=== PATIENT | female | born 1995 | race Caucasian/White ===

== ENCOUNTER 2022-08-18 08:46 | Emergency (ER) | payer OTHER, SELFPAY ==
[2022-08-18 09:11] VITALS: BP 111/75; PULSE 108; RESP 18; TEMP 37.4; O2SAT 98; BMI 42.0
--- NOTE | 2022-08-18 09:23 | ED_ITS ---
HPI - Nausea/Vomiting/Diarrhea General Chief complaint: Nausea/Vomiting/Diarrhea Stated complaint: vomiting, dehydrated Time Seen by Provider: 08/18/22 09:22 Source: patient Mode of arrival: ambulatory Limitations: no limitations History of Present Illness HPI Narrative: rhinorrhea for a few days, now with NVD. Patient with continual vomiting since last night. patient states no period in 5 months but she is on implanotono BERNARDO elicited complaint: nausea, vomiting and diarrhea Associated nausea: Yes Associated abdominal pain: Yes Severity: mild Related Data Previous Rx's Medication Instructions Recorded ondansetron 4 mg disintegrating 4 mg PO Q8H 4 days #12 tabs 08/18/22 tablet Allergies Allergy/AdvReac Type Severity Reaction Status Date / Time aripiprazole [From [employer]] Allergy Intermediate Seizure Verified 08/18/22 09:10 Review of Systems Review of Systems: Yes all other systems are reviewed and are negative Gastrointestinal: Gastrointestinal: Reports nausea and Reports vomiting Neurologic: Denies Sensory deficit (Neuro) [facility] Social History Social History Advance Directives: No Physical Exam Vital Signs: Vital Signs: Last Vital Signs Temp 100.3 F 08/18/22 10:32 Pulse 91 08/18/22 10:32 Resp 18 08/18/22 10:32 BP 105/58 L 08/18/22 10:32 Pulse Ox 99 08/18/22 10:32 O2 Del Method 08/18/22 09:11 BMI result Body Mass Index 42.0 Const: General: healthy appearing Nutritional Appearance: obese Orientation/consciousness: oriented to person and patient oriented x3 Limitations: no limitations HEENT: Head: Yes normal to inspection Ears: external ears normal General nose exam: Normal external nose present Mouth: Normal oral and palatal mucosa present and oropharynx normal Throat: Yes posterior oropharynx normal Eyes: General: appearance normal, both eyes and all related structures Neck: Other: supple Neck: Yes normal visual inspection Chest: Chest palpation & inspection: normal inspection of the chest Resp: Auscultation: clear to auscultation bilaterally Cardio: Jugular venous distension: no JVD Rate: regular rate Rhythm: regular rhythm Heart sounds: S1 normal heart sound present and S2 normal heart sound present GI: Inspection: Yes normal to inspection Palpation (GI): Soft to palpation, nontender and No hepatosplenomegaly present Auscultation: normal bowel sounds : General: Yes no CVA tenderness Back/Spine/Pelvis: Back: no CVA tenderness Skin: General skin exam: no rashes or lesions noted Neuro: General: oriented to person and patient oriented x3 Cranial nerves: Yes CN's II-XII intact bilaterally Motor exam (neuro): 5/5 motor strength pre sent throughout Sensory Exam: No Sensory deficit (Neuro) Extrem: General: Yes normal to inspection Psych: Appearance: grossly normal Course Reevaluation(s) Reevaluation #1: Patient with viral illness will give zofran and dc home Time: 10:56 Medications Administered Discontinued Medications Generic Name Dose Route Start Last Admin Trade Name Freq PRN Reason Stop Dose Admin Ondansetron HCl 4 mg 08/18/22 09:26 08/18/22 09:36 Ondansetron Odt 4 Mg Tab.Rapdis TRANSLINGU 08/18/22 09:27 4 mg ONCE ONE Administration Medical Decision Making Lab Data Labs: Lab Results 08/18/22 08/18/22 08/18/22 Range/Units 09:37 10:00 10:00 Urine Color Dark Yellow Urine Appearance Clear Urine pH 6.5 (5.0-9.0) Ur Specific [place] >= 1.030 H (1.005-1.025) Urine Protein Trace (Neg-Trace) mg/dL Urine Glucose (UA) Negative (Negative) mg/dL Urine Ketones Trace (Negative) mg/dL Urine Blood Negative (Negative) Urine Nitrite Negative (Negative) Ur Leukocyte Esterase Negative (Negative) Urine RBC 0-2 (0-2) /HPF Urine WBC 0-5 (0-5) /HPF Ur Squamous Epith Cells 3-5 (0-2) /HPF Urine Bacteria Trace (None Seen) Hyaline Casts 0-2 (0-2) /LPF Urine Test NEGATIVE (NEGATIVE) Influenza Type A (PCR) NEGATIVE (Negative) Influenza Type B (PCR) NEGATIVE (Negative) RSV RNA Qual (PCR) NEGATIVE (Negative) SARS-CoV-2 RNA (RT-PCR) NEGATIVE (Negative) Discharge Plan Discharge Clinical Impression: Viral illness, Nausea & vomiting Patient Disposition: Home, Self-Care Instructions: Acute Nausea and Vomiting (ED), Viral Syndrome (ED) Prescriptions: New ondansetron 4 mg tablet,disintegrating 4 mg PO Q8H 4 Days Qty: 12 0RF
[2022-08-18] MEDS: Ondansetron ODT 4 MG TAB.RAPDIS TRANSLINGU (09:36)
[2022-08-18 09:37] VITALS: BP 121/68; PULSE 93; RESP 16; O2SAT 97
[2022-08-18 10:14] LABS: Appearance Urine Clear; Color Urine Dark Yellow; Glucose Urine UA Negative (Negative); Leukocyte Esterase Urine Negative (Negative); Nitrite Urine Negative (Negative); PH 6.5 (5.0-9.0); Specific Gravity - Urine >= 1.030 (1.005-1.025); Urine Blood Negative (Negative); Urine Ketones Trace mg/dL (Negative); Urine Protein Trace mg/dL (Neg-Trace)
[2022-08-18 10:18] LABS: Influenza A PCR NEGATIVE (Negative); Influenza B PCR NEGATIVE (Negative); Resp Syncy Virus RNA Qual PCR NEGATIVE (Negative); SARS COV2 PCR INHOUSE NEGATIVE (Negative)
[2022-08-18 10:19] LABS: Bacteria Urine Trace (None Seen); Hyaline Casts Urine 0-2 /LPF (0-2); RBC Urine 0-2 /HPF (0-2); UPreg QC Valid YES; Urine Pregnancy NEGATIVE (NEGATIVE); WBC Urine 0-5 /HPF (0-5)
[2022-08-18 10:32] VITALS: BP 105/58; PULSE 91; RESP 18; TEMP 37.9; O2SAT 99
== END 2022-08-18 11:15 | disposition home or self-care (01) ==
PROVIDERS: Emergency Provider Emergency Medicine
DX: B34.9 Viral infection, unspecified (principal); R11.2 Nausea with vomiting, unspecified; Z20.822 Contact with and (suspected) exposure to COVID-19
CPT/HCPCS: 0241U; 81001; 81025; 99283

== ENCOUNTER 2023-05-22 14:12 | Outpatient (AMB) | payer OTHER, SELFPAY ==
--- NOTE | 2023-05-22 14:21 | A.OFFVIS_ITS ---
Intake Vital Signs 05/22/23 14:23 Height 5 ft 6 in Weight 294 lb BMI 47.4 BP 128/90 H Blood Pressure Location Rt brachial Position Sitting Pulse 113 H Pulse Source Auscultation Pulse Oximetry (%) 98 Oxygen Delivery Method Room Air Intake Visit Reasons: E-BOOKKEEPER RECEPTIONIST: Sleep Disturbances - Confirmed Intake Note: Patient presents for sleep disturbances. patient states I used to be on meds for nightmares but they were not as frequent so I stopped therm. I have trouble staying asleep have woken up crying and having nightmares and seeing things in my room. Allergies aripiprazole [From Abilify] Allergy (Intermediate, Verified 05/22/23 14:26) Seizure HPI HPI Comments History of Present Illness Details 28 y/o female patient presents for new i n-person visit for sleep consultation. Pt reports she is having difficulty breathing at night and loud snoring. She has non refreshing sleep with daytime sleepiness. She feels tired all day. Pt has hx of night terror, it started at her age 15, and still having nightmares. Pt also reports REM behavior, her sleep partner reported to her she had sexual activity during sleep However she states that she was not awake and can't remember anything in the morning. Sleep questionnaire: Have you ever been diagnosed with a sleep disorder? Night terrors. Have you ever had a sleep study in the past? No. Have you ever been treated for a sleep disorder? Yes, some medication, but can't remember. Do you take medications for a sleep disorder? No. Do you snore? Yes. Do you wake up gasping at night? Yes. Do you have episodes of apneas? No. If yes, are they witnessed? No. Do you have episodes of nocturnal chest pain or dyspnea? No. Do you have difficulty initiating sleep? No. Do you have difficulty maintaining sleep? Yes, 4-5 times at night. Do you wake up tired? Yes, and always tired. Do you have headaches upon awakening? No. Do you wake up with dry mouth or throat? Yes. Do you have GERD? No. Do you have nocturia? Yes. Do you have nocturnal leg cramps? Not really. Do you have symptoms of restless legs? Yes. Do you act out your dreams? Yes. Sleep hygiene questionnaire: What is your usual sleep routine? Usual bedtime is at 8-9 pm; Usual wake up time is at 7 am. Do you take naps? No. Is your sleep environment cool, dark, and quiet? Yes. Do you exercise? Yes. Do you take caffeine or other stimulants? Two cups of coffee throughout the day. Smoking 2-3 cabarets a day. Do you use electronics in bed? Yes. What is your work schedule? [employer], weekend. Hypersomnolence questionnaire: Do you have daytime tiredness or fatigue? Yes. Do you easily fall asleep when inactive? No. Have you ever had episodes of sudden weakness? No. Have you ever had episodes of sudden weakness associated with strong emotions? No. PFSH Surgical History (Updated 05/22/23 @ 14:27 by CONNIE Petersen) H/O eye surgery Social History (Updated 05/22/23 @ 14:28 by CONNIE Petersen) Alcohol intake: current Patient Tobacco Use Status: Current everyday Tobacco user Review of Systems Const All systems reviewed & are unremarkable except as noted in HPI and below ENT Reports Normal hearing present Neuro Reports Normal hearing present Physical Exam Vital Signs: Last Vital Signs Pulse 113 H 05/22/23 14:23 BP 128/90 H 05/22/23 14:23 Pulse Ox 98 05/22/23 14:23 Oxygen Delivery Method Room Air 05/22/23 14:23 BMI result Body Mass Index 47.4 Const General: cooperative and tired appearing Nutritional Appearance: obese Orientation/consciousness: patient oriented x3 HEENT Throat: Yes other (mallampati grade 4) Neck Neck: Yes full ROM and Yes supple Resp Effort & Inspection: normal respiratory effort and able to speak in complete sentences Neuro General: patient oriented x3 and gait normal Cranial nerves: Yes Bilaterally intact EOM present, Yes Normal facial strength present, Yes Midline tongue present, Yes Symmetric palate elevation present, Yes Normal hearing present, Yes Ability to bilaterally rotate head present and Yes Ability to bilaterally elevate shoulders present Cognition (Neuro): normal cognition Gait exam (Neuro): Normal gait present Motor exam (neuro): 5/5 motor strength present throughout and Pronator motor function not present Psych Appearance: grossly normal Mental Status: mental status grossly normal Speech and movement: Normal speech and movement present Affect: normal affect Assessment & Plan Assessment & Plan (1) Daytime sleepiness: Code(s): R40.0 - Somnolence (2) Snoring: Code(s): R06.83 - Snoring (3) Obesity, Class III, BMI 40-49.9 (morbid obesity): Code(s): E66.01 - Morbid (severe) obesity due to excess calories (4) Restless legs syndrome: Code(s): G25.81 - Restless legs syndrome (5) REM behavioral disorder: Code(s): G47.52 - REM sleep behavior disorder Plan Pt is advised to undergo in lab sleep study to assess for sleep apnea, REM behav ior disorder and PLMD. Will f/u with pt after study to discuss results and appropriate treatment options. Sleep hygiene education provided. Advised patient to reduce smoking in the evening. Pt to call with any worsening concerns or questions. Orders: Orders RT PSG in-lab sleep study 05/22/23 G47.52 - REM sleep behavior disorder, G25.81 - Restless legs syndrome, E66.01 - Morbid (severe) obesity due to excess calories, R06.83 - Snoring, R40.0 - Somnolence Coding Level of Care Code New Pt Level 4 (51867) Diagnoses Daytime sleepiness R40.0 Snoring R06.83 Obesity, Class III, BMI 40-49.9 (morbid obesity) E66.01 Restless legs syndrome G25.81 REM behavioral disorder G47.52
[2023-05-22 14:23] VITALS: BP 128/90; PULSE 113; O2SAT 98; BMI 47.4
== END 2023-05-22 15:23 | disposition home or self-care (01) ==
PROVIDERS: PCP Nurse Practitioner Family; Visit Provider Nurse Practitioner Family
DX: R40.0 Somnolence (principal); R06.83 Snoring; E66.01 Morbid (severe) obesity due to excess calories; G25.81 Restless legs syndrome; G47.52 REM sleep behavior disorder
CPT/HCPCS: 99204

== ENCOUNTER → 2023-05-22 14:12 | Outpatient (BNVA) | payer OTHER, SELFPAY | PROVIDERS: Visit Provider Nurse Practitioner Family ==

== ENCOUNTER → 2023-08-09 20:30 | Outpatient (REF) | payer OTHER, SELFPAY | LOC: HO.SL 20:30 | PROVIDERS: PCP Nurse Practitioner Family; Visit Provider Nurse Practitioner Family | DX: G47.52 REM sleep behavior disorder (principal); G25.81 Restless legs syndrome; R06.83 Snoring; R40.0 Somnolence; E66.01 Morbid (severe) obesity due to excess calories | CPT/HCPCS: 95810 ==

== ENCOUNTER → 2023-08-10 02:18 | Outpatient (BNV) | payer OTHER, SELFPAY | PROVIDERS: PCP Nurse Practitioner Family; Visit Provider Psychiatry & Neurology Neurology | DX: G47.33 Obstructive sleep apnea (adult) (pediatric) (principal); G47.61 Periodic limb movement disorder | CPT/HCPCS: 95810 ==

== ENCOUNTER 2023-09-19 13:52 | Outpatient (AMB) | payer OTHER, SELFPAY ==
--- NOTE | 2023-09-19 13:55 | A.OFFVIS_ITS ---
Intake Vital Signs 09/19/23 14:01 Height 5 ft 6 in Weight 309 lb 8 oz BMI 49.9 BP 120/90 H Blood Pressure Location Rt brachial Position Sitting Pulse 102 H Pulse Source Pulse Oximeter Pulse Oximetry (%) 98 Oxygen Delivery Method Room Air Intake Visit Reasons: 4 mnts f/u-Confirmed Intake Note: Patient presents for four month F/U. Allergies aripiprazole [From Abilify] Allergy (Intermediate, Verified 09/19/23 13:58) Seizure HPI HPI Comments History of Present Illness Details 28 y/o female patient presents for follo w up of sleep study. The PSG sleep study result was significant for severe degree of sleep apnea. The AHI was 60/hr and oxygen luna was 81%. There were 275 PLMS with PLMs index 46.4/hr. 96 PLMS arousals with a PLMS arousals index of 16.2/hr. CPAP titration study ordered to find the optimal CPAP pressure to treat the severe degree of sleep apnea. Pt reports it is scheduled on 10/09/23. PFSH Surgical History H/O eye surgery Social History Alcohol intake: current Patient Tobacco Use Status: Current everyday Tobacco user Review of Systems Const All systems reviewed & are unremarkable except as noted in HPI and below ENT Reports Normal hearing present Neuro Reports Normal hearing present Physical Exam Vital Signs: Last Vital Signs Pulse 102 H 09/19/23 14:01 BP 120/90 H 09/19/23 14:01 Pulse Ox 98 09/19/23 14:01 Oxygen Delivery Method Room Air 09/19/23 14:01 BMI result Body Mass Index 49.9 Const General: cooperative and tired appearing Nutritional Appearance: obese Orientation/consciousness: patient oriented x3 HEENT Throat: Yes other (mallampati grade 4) Neck Neck: Yes full ROM and Yes supple Resp Effort & Inspection: normal respiratory effort and able to speak in complete sentences Neuro General: patient oriented x3 and gait normal Cranial nerves: Yes Bilaterally intact EOM present, Yes Normal facial strength present, Yes Midline tongue present, Yes Symmetric palate elevation present, Yes Normal hearing present, Yes Ability to bilaterally rotate head present and Yes Ability to bilaterally elevate shoulders present Cognition (Neuro): normal cognition Gait exam (Neuro): Normal gait present Motor exam (neuro): 5/5 motor strength present throughout and Pronator motor function not present Psych Appearance: grossly normal Mental Status: mental status grossly normal Speech and movement: Normal speech and movement present Affect: normal affect Assessment & Plan Assessment & Plan (1) Obesity, Class III, BMI 40-49.9 (morbid obesity): Code(s): E66.01 - Morbid (severe) obesity due to excess calories (2) Restless legs syndrome: Code(s): G25.81 - Restless legs syndrome (3) Periodic limb movement disorder: Code(s): G47.61 - Periodic limb movement disorder (4) NIA (obstructive sleep apnea): Comment: Severe degree of sleep apnea. The AHI was 60/hr and oxygen luna was 81%. Code(s): G47.33 - Obstructive sleep apnea (adult) (pediatric) Plan Advised patient to undergo CPAP titration study to find optimal CPAP pressure. Sleep hygiene education provided. Advised patient to reduce smoking in the evening. Will check labs to assess RLS and PLMD. Pt to call with any worsening concerns or questions. Coding Level of Care Code Est Pt Level 3 (32450) Diagnoses Obesity, Class III, BMI 40-49.9 (morbid obesity) E66.01 Restless legs syndrome G25.81 Periodic limb movement disorder G47.61 NIA (obstructive sleep apnea) G47.33
[2023-09-19 14:01] VITALS: BP 120/90; PULSE 102; O2SAT 98; BMI 49.9
== END 2023-09-19 14:26 | disposition home or self-care (01) ==
PROVIDERS: Visit Provider Nurse Practitioner Family
DX: E66.01 Morbid (severe) obesity due to excess calories (principal); G25.81 Restless legs syndrome; G47.61 Periodic limb movement disorder; G47.33 Obstructive sleep apnea (adult) (pediatric)
CPT/HCPCS: 99213

== ENCOUNTER → 2023-09-19 13:52 | Outpatient (BNVA) | payer OTHER, SELFPAY | PROVIDERS: Visit Provider Nurse Practitioner Family | DX: G47.33 Obstructive sleep apnea (adult) (pediatric) (principal); G47.61 Periodic limb movement disorder; G25.81 Restless legs syndrome; E66.01 Morbid (severe) obesity due to excess calories; Z68.42 Body mass index [BMI] 45.0-49.9, adult | CPT/HCPCS: 99212 ==

== ENCOUNTER → 2023-10-09 20:30 | Outpatient (REF) | payer OTHER, SELFPAY | LOC: HO.SL 20:30 | PROVIDERS: Visit Provider Nurse Practitioner Family | DX: Z13.89 Encounter for screening for other disorder (principal) ==

== ENCOUNTER 2023-12-18 15:28 | Outpatient (AMB) | payer OTHER, SELFPAY ==
--- NOTE | 2023-12-18 15:40 | MHC.OFFVIS ---
Intake Vital Signs 12/18/23 15:42 Height 5 ft 6 in Weight 315 lb 4 oz BMI 50.9 BP 112/62 Blood Pressure Location Rt brachial Position Sitting Respiration 16 Pulse 108 H Pulse Source Pulse Oximeter Pulse Oximetry (%) 95 Oxygen Delivery Method Room Air Intake Visit Reasons: Follow up Intake Note: Pt presents for a 3 month follow up for NIA, to discuss titration study. Group Program Manager Required: No Allergies aripiprazole [From Abilify] Allergy (Intermediate, Verified 12/18/23 15:42) Seizure Medication List - Last Reconciled 12/18/23 by Kendra Servin MD No Known Home Meds HPI HPI Comments History of Present Illness Details 28 y/o female patient presents for follow up of sleep study. The PSG sleep study result was significant for severe degree of sleep apnea. The AHI was 60/hr and oxygen luna was 81%. There were 275 PLMS with PLMs index 46.4/hr. 96 PLMS arousals with a PLMS arousals index of 16.2/hr. she was started on CPAP at 7 - 100% for past 30 days 11 days over 4 hrs Average usage hrs 3 hrs AHI 7 she has trouble using because of her recent illness and insomnia PFSH Surgical History H/O eye surgery Social History Alcohol intake: current Patient Tobacco Use Status: Current everyday Tobacco user Review of Systems ENT Reports Normal hearing present Neuro Reports Normal hearing present Physical Exam Vital Signs: Last Vital Signs Pulse 108 H 12/18/23 15:42 Resp 16 12/18/23 15:42 BP 112/62 12/18/23 15:42 Pulse Ox 95 12/18/23 15:42 Oxygen Delivery Method Room Air 12/18/23 15:42 BMI result Body Mass Index 50.9 Const General: cooperative and tired appearing Nutritional Appearance: obese Orientation/consciousness: patient oriented x3 HEENT Throat: Yes other (mallampati grade 4) Neck Neck: Yes full ROM and Yes supple Resp Effort & Inspection: normal respiratory effort and able to speak in complete sentences Neuro General: patient oriented x3 and gait normal Cranial nerves: Yes Bilaterally intact EOM present, Yes Normal facial strength present, Yes Midline tongue present, Yes Symmetric palate elevation present, Yes Normal hearing present, Yes Ability to bilaterally rotate head present and Yes Ability to bilaterally elevate shoulders present Cognition (Neuro): normal cognition Gait exam (Neuro): Normal gait present Motor exam (neuro): 5/5 motor strength present throughout and Pronator motor function not present Psych Appearance: grossly normal Mental Status: mental status grossly normal Speech and movement: Normal speech and movement present Affect: normal affect Assessment & Plan Assessment & Plan (1) Obesity, Class III, BMI 40-49.9 (morbid obesity): Code(s): E66.01 - Morbid (severe) obesity due to excess calories (2) Restless legs syndrome: Code(s): G25.81 - Restless legs syndrome (3) Periodic limb movement disorder: Code(s): G47.61 - Periodic limb movement disorder (4) NIA (obstructive sleep apnea): Comment: Severe degree of sleep apnea. The AHI was 60/hr and oxygen luna was 81%. Code(s): G47.33 - Obstructive sleep apnea (adult) (pediatric) Plan Continue CPAP at 7 and compliance stressed Melatonin 5mg qhs Flonase for nasal congestion start gabapentin 100mg qhs Sleep hygiene education provided. Advised patient to reduce smoking in the evening. Medications: New fluticasone propionate 50 mcg/actuation (Flonase Allergy Relief) administer into each nostril 1 spray intranasal DAILY 16 grams 4RF melatonin 5 mg PO .qhs 30 caps 6RF gabapentin 100 mg PO BEDTIME 30 caps 6RF gabapentin 100 mg PO BEDTIME 30 caps 6RF Coding Level of Care Code Est Pt Level 4 (69285) Diagnoses Obesity, Class III, BMI 40-49.9 (morbid obesity) E66.01 Restless legs syndrome G25.81 Periodic limb movement disorder G47.61 NIA (obstructive sleep apnea) G47.33
[2023-12-18 15:42] VITALS: BP 112/62; PULSE 108; RESP 16; O2SAT 95; BMI 50.9
== END 2023-12-18 16:27 | disposition home or self-care (01) ==
PROVIDERS: Visit Provider Psychiatry & Neurology Neurology
DX: E66.01 Morbid (severe) obesity due to excess calories (principal); G25.81 Restless legs syndrome; G47.61 Periodic limb movement disorder; G47.33 Obstructive sleep apnea (adult) (pediatric)
CPT/HCPCS: 99214

== ENCOUNTER → 2023-12-18 15:28 | Outpatient (BNVA) | payer OTHER, SELFPAY | PROVIDERS: Visit Provider Psychiatry & Neurology Neurology | DX: G47.33 Obstructive sleep apnea (adult) (pediatric) (principal); G25.81 Restless legs syndrome; G47.61 Periodic limb movement disorder; E66.01 Morbid (severe) obesity due to excess calories; Z68.43 Body mass index [BMI] 50.0-59.9, adult | CPT/HCPCS: 99212 ==

== ENCOUNTER 2024-08-31 10:33 | Outpatient (AMB) | payer OTHER, SELFPAY ==
[2024-08-31 10:35] VITALS: BMI 51.6
--- NOTE | 2024-08-31 10:35 | MHC.OFFVIS ---
Vital Signs 08/31/24 10:35 Height 5 ft 6 in Weight 320 lb BMI 51.6 Intake Visit Reasons: Follow up Intake Note: Patient presents for follow up. patient here for new evaluation for CPAP Allergies aripiprazole [From Abilify] Allergy (Intermediate, Verified 08/31/24 10:39) Seizure HPI Comments Details: 29 y/o female patient presents for follow up.she stopped using CPAP - her mask broke and she had mulitple problems with the equipment and says her machine smells like mold and she returned.The home care ( [facility] did not return he rcalls for help with her mask and never received any new supplies and had to use a broken mask ) The PSG sleep study result was significant for severe degree of sleep apnea. The AHI was 60/hr and oxygen luna was 81%. There were 275 PLMS with PLMs index 46.4/hr. 96 PLMS arousals with a PLMS arousals index of 16.2/hr. she was started on CPAP at 7 - 62% for past 30 days 8 days over 4 hrs Average usage hrs 1.57 AHI 16 she wants to try a different home care company . she has trouble using because of her recent illness and insomnia PFSH Surgical History H/O eye surgery Social History Alcohol intake: current Patient Tobacco Use Status: Current everyday Tobacco user Review of Systems ENT Reports Normal hearing present Neuro Reports Normal hearing present Physical Exam Vital Signs: BMI result Body Mass Index 51.6 Const General: cooperative and tired appearing Nutritional Appearance: obese Orientation/consciousness: patient oriented x3 HEENT Throat: Yes other (mallampati grade 4) Neck Neck: Yes full ROM and Yes supple Resp Effort & Inspection: normal respiratory effort and able to speak in complete sentences Neuro General: patient oriented x3 and gait normal Cranial nerves: Yes Bilaterally intact EOM present, Yes Normal facial strength present, Yes Midline tongue present, Yes Symmetric palate elevation present, Yes Normal hearing present, Yes Ability to bilaterally rotate head present and Yes Ability to bilaterally elevate shoulders present Cognition (Neuro): normal cognition Gait exam (Neuro): Normal gait present Motor exam (neuro): 5/5 motor strength present throughout and Pronator motor function not present Psych Appearance: grossly normal Mental Status: mental status grossly normal Speech and movement: Normal speech and movement present Affect: normal affect Assessment & Plan Assessment & Plan (1) Obesity, Class III, BMI 40-49.9 (morbid obesity): Code(s): E66.01 - Morbid (severe) obesity due to excess calories Category: Medical (2) Restless legs syndrome: Code(s): G25.81 - Restless legs syndrome Category: Medical (3) Periodic limb movement disorder: Code(s): G47.61 - Periodic limb movement disorder Category: Medical (4) NIA (obstructive sleep apnea): Comment: Severe degree of sleep apnea. The AHI was 60/hr and oxygen luna was 81%. Code(s): G47.33 - Obstructive sleep apnea (adult) (pediatric) Category: Medical Plan Continue CPAP at 7 and compliance stressed- prescription will be sent to a new Homecare company avoid supine sleep Melatonin 5mg qhs Flonase for nasal congestion start ropinirole 1mg qhs for restless legs syndrome. Sleep hygiene education provided Medications: New ropinirole administer 1-3 hours before bedtime 1 mg PO BEDTIME 30 tabs 6RF Discontinued gabapentin Discontinued Reason: Patient no longer taking 100 mg PO BEDTIME 30 caps 6RF Coding Level of Care Code Est Pt Level 4 (77931) Complex EM visit Add On G2211 Diagnoses Obesity, Class III, BMI 40-49.9 (morbid obesity) E66.01 Restless legs syndrome G25.81 Periodic limb movement disorder G47.61 NIA (obstructive sleep apnea) G47.33
== END 2024-08-31 11:02 | disposition home or self-care (01) ==
PROVIDERS: Visit Provider Psychiatry & Neurology Neurology
DX: E66.01 Morbid (severe) obesity due to excess calories (principal); G25.81 Restless legs syndrome; G47.61 Periodic limb movement disorder; G47.33 Obstructive sleep apnea (adult) (pediatric)
CPT/HCPCS: 99214; G2211

== ENCOUNTER → 2024-08-31 10:33 | Outpatient (BNVA) | payer OTHER, SELFPAY | PROVIDERS: Visit Provider Psychiatry & Neurology Neurology | DX: E66.01 Morbid (severe) obesity due to excess calories (principal); G25.81 Restless legs syndrome; G47.61 Periodic limb movement disorder; G47.33 Obstructive sleep apnea (adult) (pediatric); Z99.89 Dependence on other enabling machines and devices | CPT/HCPCS: 99212 ==

== ENCOUNTER 2024-10-07 02:03 | Emergency (ER) | payer OTHER, SELFPAY ==
--- NOTE | ~2024-10-07 | XR_ITS ---
CLINICAL HISTORY: sob 1 view chest x-ray Comparison: None Findings: No consolidation or effusion. Normal size heart. No acute fracture. IMPRESSION: 1. No acute findings. This document has been electronically signed by: Ulysses Oates MD on 10/07/2024 02:40:55
[2024-10-07 02:10] VITALS: BP 111/42; PULSE 93; RESP 20; TEMP 36.8; O2SAT 98; BMI 51.6
[2024-10-07 02:28] LABS: IDNOW Serial# 58CA691E; Strep A Nucleic Acid Negative (Negative)
[2024-10-07 02:58] LABS: Influenza A PCR POSITIVE (Negative); Influenza B PCR NEGATIVE (Negative); Resp Syncy Virus RNA Qual PCR NEGATIVE (Negative); SARS COV2 PCR INHOUSE NEGATIVE (Negative)
--- OUTSIDE RECORDS SUMMARY | 2024-10-07 04:20 | XMS_ITS | Encounter Summary ---
Author Organization [facility] Address [address] [place] [address] Care Team Providers Care Well Logging Captain Mud Analysis Name Role Phone Lore Jeffries Primary Care Provider [phone] Encounter Details Date Type Department Care Team (Latest Contact Info) Description 10/06/2024 10:40 AM EST Telemedicine Visit [facility] [address] [place] [phone] Child, BRUCE Mckoy [address] [place], [place] [phone] Acute cough (Primary Dx); Sore throat Social History Tobacco Use Types Packs/Day Years Used Date Smoking Tobacco: Some Days Cigarettes Smokeless Tobacco: Never Comments:Occasionally smokes cigarettes Alcohol Use Standard Drinks/Week Comments Not Currently 0 (1 standard drink = 0.6 oz pur e alcohol) Social Connections Answer Date Recorded Connectedness 0 10/04/2022 Financial Resource Strain Answer Date R ecorded Financial Resource Strain 0 2022 Stress Answer Date Recorded Stress 0 10/04/2022 Physical Activity Answer Date Recorded Physical Activity 0 04/26/2019 Food Insecurity Answer Date Recorded Food 0 10/04/2022 Transportation Needs Answer Date Record ed Transportation 0 10/04/2022 Housing Stability Answer Date Recorded Housing 0 10/04/2022 Safety and Environment Answer Date Servando rded Safety 1 02/04/2024 Utilities Answer Date Recorded Utilities 0 10/04/2022 Employment Answer Date Recorded Stress 0 05/30/2022 Comments No Sex and Gender Information Value Date Recorded Sex Assigned at Female 07/08/2017 10:57 AM PST Legal Sex Female 12:36 PM PDT Gender Identity Female 07/08/2017 10:57 AM PST Sexual Orientation Straight 07/08/2017 10 :57 AM PST documented as of this encounter Progress Notes * Ean Radford PA-C - 10/06/2024 10:50 AM EST Subjective: CC: cough HPI: Vaishnavi Garza is a 29 year old female patient who calls the office for a Telehealth encounter Patient calls the office due to symptoms of sore throat, cough, runny nose, for the past 3 days. Reports diarrhea over the past 3 days. Developed a fever yesterday, which has now resolved. Patient can tolerate food and liquid PO intake. She tried Tylenol with some relief. ROS: Denies sinus pain, chills, lightheadedness, sneezing, itchy eyes, eye pain, ear pain, chest pain, shortness of breath, abdominal pain Lab Results Component Value Date HGBA1C 5.9 (H) 04/24/2024 HGBA1C 5.2 12/04/2022 Allergies Allergen Reactions Aripiprazole Patient Active Problem List Diagnosis Anxiety and depression Posttraumatic stress disorder Attention deficit hyperactivity disorder (ADHD) Class 3 severe obesity due to excess calories without serious comorbidity with body mass index (BMI) of 45.0 to 49.9 in adult ([facility]) Nexplanon in place Binge eating disorder Current Outpatient Medications: benzonatate (TESSALON) 200 mg capsule, Take 1 Capsule by mouth 3 (three) times daily as needed for cough, Disp: 30 Capsule, Rfl: 0 ibuprofen 800 mg tablet, Take 1 Tablet by mouth 3 (three) times daily as needed for fever, headaches or pain, Disp: 90 Tablet, Rfl: 0 rOPINIRole (REQUIP) 1 mg tablet, Take 1 mg by mouth nightly at bedtime, Disp: , Rfl: cetirizine (ZYRTEC) 10 mg tablet, Take 1 Tablet by mouth once daily, Disp: 90 Tablet, Rfl: 1 fluticasone (FLONASE) 50 mcg/actuation nasal spray, Place 1 [place] in both nostrils once daily, Disp: 32 mL, Rfl: 1 liraglutide (VICTOZA) 0.6 mg/0.1 mL (18 mg/3 mL), INJECT 0.6MG INTO THE SKIN DAILY, Disp: 3 mL, Rfl: 1 pen needle, diabetic 32 gauge x 5/16 ndle, daily. Use to inject victoza once daily, Disp: 100 Each, Rfl: 2 clindamycin-benzoyl peroxide (BENZACLIN) 1-5 % gel, Apply topically 2 (two) times daily, Disp: 50 g, Rfl: 1 nystatin (MYCOSTATIN) 100,000 unit/gram cream, Apply topically 2 (two) times daily, Disp: 15 g, Rfl: 0 semaglutide, weight loss, 0.25 mg/0.5 mL pnij, Inject 0.25 mg into the skin every 7 (seven) days Week 1 through week 4 : 0.25 mg once weekly. Week 5 through week 8: 0.5 mg once weekly. Week 9 throughweek 12: 1 mg once weekly. Week 13 through week 16: 1.7 mg once weekly. Week 17 and thereafter (maintenance dosage): 2.4 mg once weekly, Disp: 0.5 mL, Rfl: 5 loratadine (CLARITIN) 10 mg tablet, TAKE 1 TABLET BY MOUTH ONCE DAILY NEEDED FOR ALLERGIES, Disp: 90 Tablet, Rfl: 0 albuterol HFA 90 mcg/actuation inhaler, Inhale 1-2 Puffs into the lungs every 4 (four) hours as needed for wheezing or shortness of breath, Disp: 18 g, Rfl: 1 Review of Systems Remainder ROS: See HPI, systems reviewed and are otherwise negative or noncontributory. Assessment and Plan: Vaishnavi Garza is a 29 year old female patient who was seen today as a walk-in at urgent care for evaluation of URI. R05.1 Acute cough (primary encounter diagnosis) Plan : IBUPROFEN 800 MG TABLET - Take 1 Tablet by mouth 3 (three) times daily as needed for fever, headaches or pain BENZONATATE 200 MG CAPSULE - Take 1 Capsule by mouth 3 (three) times daily as needed for cough J02.9 Sore throat Plan : IBUPROFEN 800 MG TABLET - Take 1 Tablet by mouth 3 (three) times daily as needed for fever, headaches or pain BENZONATATE 200 MG CAPSULE - Take 1 Capsule by mouth 3 (three) times daily as needed for cough The following visit was conducted via Audio only. I educated the patient/guardian on the terms of telehealth and the patient verbally consented to this telemedicine visit. The patient was identified using their Name, and [facility] ID. I identified myself as Ean Radford PA-C from [facility]. It was conducted in a private space to protect HIPPA sensitive information. Precautions were taken to provide confidentiality and security and patient was made aware of privacy considerations. The patients location was obtained and is Pts home The patient/guardian was notified that the services were being provided from [place], [place]([facility]). The patient/guardian was notifiedhow they can see a clinician in-person in the event of an emergency or if otherwise needed. Total duration of call = 8 minutes Net Fisher used during visit? No documented in this encounter Plan of Treatment Upcoming Encounters Date Type Department Care Team (Late st Contact Info) Description 10/20/2024 1:40 PM EST Office Visit [facility] [address] [place] [address] Lore Jeffries PA [facility] [place] [address] documented as of this encounter Visit Diagnoses Diagnosis Acute cough- Primary Sore throat Acute pharyngitis documented in this encounter Additional Health Concerns Assessment Noted Time PHQ-9 Depression Total Score: 5 02/04/20 24 3:52 PM PDT documented as of this encounter Care Teams Well Logging Captain Mud Analysis Relationship Specialty Start Date End Date Lore Jeffries PA [facility] [place] [address] PCP - General Primary Care 09/10/23 documented as of this encounter
--- OUTSIDE RECORDS SUMMARY | 2024-10-07 04:20 | XMS_ITS | Clinical Summary ---
Author Organization [facility] Address [address] [place] [address] Care Team Providers Care Apple Turner Name Role Phone Lore Jeffries Primary Care Provider [phone] Source Comments PLEASE NOTE, if this patient is a minor, it may be UNLAWFUL to discuss sensitive information that is contained in these records (such as FAMILY PLANNING, MENTAL HEALTH or SUBSTANCE ABUSE) with the minor patient's parent or other person without the patient's specific authorization.[facility] Allergies Active Allergy Reactions Criticality Noted Date Comments Aripiprazole 07/04/2016 Medications albuterol HFA 90 mcg/actuation inhaler Inhale 1-2 Puffs into the lungs every 4 (four) hours as needed for wheezing or shortness of breath 18 g 1 3 Active loratadine (CLARITIN) 10 mg tabletIndication s:Nasal congestion TAKE 1 TABLET BY MOUTH ONCE DAILY NEEDED FOR ALLERGIES 90 Tablet 3 Active nystatin (MYCOSTATIN) 100,000 unit/gram creamIndications :Fungal infection of skin Apply topically 2 (two) times daily 15 g 4 Active semaglutide, weight loss, 0.25 mg/0.5 mL pnijIndications: Class 3 severe obesity due to excess calories without serious comorbidity with body mass index (BMI) of 50.0 to 59.9 in adult ([facility]) Inject 0.25 mg into the skin every 7 (seven) days Week 1 through week 4 : 0.25 mg once weekly. Week 5 through week 8: 0.5 mg once weekly. Week 9 through week 12: 1 mg once weekly. Week 13 through week 16: 1.7 mg once weekly. Week 17 and thereafter (maintenance dosage): 2.4 mg once weekly 0.5 mL 5 4 Active clindamycin-nyasia oyl peroxide (BENZACLIN) 1-5 % gelIndications:C yst of skin Apply topically 2 (two) times daily 50 g 1 4 Active pen needle, diabetic 32 gauge x 5/16 ndle daily. Use to inject victoza once daily 100 Each 2 4 Active liraglutide (VICTOZA) 0.6 mg/0.1 mL (18 mg/3 mL)Indications:C lass 3 severe obesity due to excess calories without serious comorbidity with body mass index (BMI) of 45.0 to 49.9 in adult ([facility]),Binge eating disorder INJECT 0.6MG INTO THE SKIN DAILY 3 mL 1 4 Active fluticasone (FLONASE) 50 mcg/actuation nasal sprayIndications :Post-nasal drip Place 1 [place] in both nostrils once daily 32 mL 1 4 Active cetirizine (ZYRTEC) 10 mg tabletIndication s:Post-nasal drip Take 1 Tablet by mouth once daily 90 Tablet 1 4 Active rOPINIRole (REQUIP) 1 mg tablet Take 1 mg by mouth nightly at bedtime 4 Active ibuprofen 800 mg tabletIndication s:Sore throat,Acute cough Take 1 Tablet by mouth 3 (three) times daily as needed for fever, headaches or pain 90 Tablet 5 Active benzonatate (TESSALON) 200 mg capsuleIndicatio ns:Sore throat,Acute cough Take 1 Capsule by mouth 3 (three) times daily as needed for cough 30 Capsule 5 Active Active Problems Problem Noted Date Diagnosed Date Binge eating disorder 04/24/[address] 05/02/2023 Class 3 severe obesity due t o excess calories without serious comorbidity with body mass index (BMI) of 45.0 to 49.9 in adult ([facility]) 01/30/2023 Attention deficit hyperactivity disorder (ADHD) 05/30/2022 Anxiety and depression 04/14/2017 Posttraumatic stress disorder 04/14/2017 Resolved Problems Problem Noted Date Diagnosed Date Resolved Date 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 Encounters Date Type Department Care Team Description 10/06/2024 10:40 AM EST Telemedicine Visit [facility] [address] [place] [phone] Child, BRUCE Mckoy Acute cough (Primary Dx); Sore throat 07/15/2024 4:20 PM EST Office Visit [facility] [place] [address] [place] [address] Paul Thompson FNP Seasonal allergies (Primary Dx); Post-nasal drip; Cough, unspecified type; NIA (obstructive sleep apnea); Paresthesias; Class 3 severe obesity with body mass index (BMI) of 50.0 to 59.9 in adult, unspecified obesity type, unspecified whether serious comorbidity present ([facility]) 07/15/2024 Travel from Last 3 Months Immunizations Name Administration Dates Next Due DTAP 11/30/2019 Flu, Preservative Free 06/13/2023,10/04/2022 HPV 9 (Gardasil) 06/13/2023,02/11/2023, 3 Hep B,adult,adjuvanted (HEPLISAV) 06/13/2023,08/2023 MMR (MMR II/Priorix) 02/11/2020 PNEUMOCOCCAL CONJUGATE PCV 2 0 (Prevnar) 02/04/2024,06/17/2023(Deferred: Out of Stock) TDAP 11/30/2019 Family History * Patient is adopted Medical History Relation Name Comments Breast cancer Maternal Grandmother Relation Name Status Comments Maternal Grandmother Social History Tobacco Use Types Packs/Day Years [...] Orientation Straight 07/08/2017 10 :57 AM PST Last Filed Vital Signs Vital Sign Reading Time Taken Comments Blood Pressure 120/74 07/15/2024 4:39 PM EST Pulse 108 07/15/2024 4:39 PM EST Temperature 36.7 ??C (98 ??F) 07/15/2024 4:39 PM EST Respiratory Rate 18 05/13/2024 3:23 PM EDT Oxygen Saturation 98% 07/15/2024 4:39 PM EST Inhaled Oxygen Concentration - - Weight 141.5 kg (312 lb) 07/15/2024 4:39 PM EST Height 167.6 cm (5' 6 ) 07/15/2024 4:39 PM EST Body Mass Index 50.36 07/15/2024 4:39 PM EST Plan of Treatment Upcoming Encounters Date Type Department Care Team (Late st Contact Info) Description 10/20/2024 1:40 PM EST Office Visit [facility] [place] [address] [place] [phone] Lore Jeffries PA [address] [place] [phone] Health Maintenance Due Date Last Done Comments HPV Screening 1997 Pap + HPV 1997 Medicare Annual Wellness Visit 2015 Cervical Cancer Screening 2018 Pap Smear 2018 Depression Monitoring 07/25/2024 04/24/2024 , 02/04/2024, 06/13/2023, Additional history exists Alcohol and Drug Screen 09/02/2024 04/24/20 24, 02/04/2024, 03/13/2023, Additional history exists [id number] ( season) 2024 Postponed from 05/03/2024 (Patient postponement) Relationship Safety Screening/Counseling 02/03/2025 02/04/2024, 10/04/2022, 05/30/2022 Tobacco Cessation Counseling (#1) 02/03/2025 02/04/2024, 06/17/2023, 12/04/2022 Imm-Influenza (#1) 2025 06/13/2023, 10/04/2022 Postponed from 05/03/2024 (Follow up visit) Diabetes Screening 04/24/2025 04/24/2024, 0 04/24/2024, 12/04/2022, Additional history exists Hypertension Screening (#1) 07/15/2025 Lipid Screening 12/04/2025 12/04/2022 Imm-DTaP/Tdap/Td (3 - Td or Tdap) 11/29/2029 11/30/2019, 11/30/2019 HIV Screening Completed 01/09/2018 Hepatitis C Screening Completed 12/04/2022 Imm-Hepatitis B Completed 06/13/2023, 02/11/2023 Imm-Pneumococcal Completed 02/04/2024 Cervical Ablation/Cold-Knife Conization Discontinued Cervical Cryotherapy Discontinued Colposcopy Discontinued Endometrial Biopsy Discontinued Excision/Leep Discontinued HPV Genotyping Discontinued Vaginal Pap Discontinued Vulvoscopy Discontinued Procedures Procedure Name Priority Date/Time Associated Diagnosis Comments COMPREHENSIVE METABOLIC PANEL Routine 04/24/2024 3:59 PM EDT Class 3 severe obesity due to excess calories without serious comorbidity with body mass index (BMI) of 50.0 to 59.9 in adult ([facility]) HEPATITIS C AB W/RFLX HCV RNA, QT, RT PCR Routine 12/04/2022 10:23 AM EDT Screening for viral disease LIPID PANEL Routine 12/04/2022 10:23 AM EDT Encounter for wellness examination in adult BMI 40.0-44.9, adult ([facility]) Lipid screening Abnormal finding of blood chemistry, unspecified ANTIBODY HIV-1&HIV-2 SINGLE RESULT Routine 01/09/2018 10:30 AM EDT STD (female) from Last 3 Months or Most Recently Relevant to Health Maintenance Results * (ABNORMAL) COMPREHENSIVE METABOLIC PANEL (04/24/2024 3:59 PM EDT) GLUCOSE 121(H) 65 - 99 mg/dL [facility] Comment: ?Fasting reference interval For someone without known diabetes, a glucose value between 100 and 125 mg/dL is consistent with prediabetes and should be confirmed with a follow-up test. UREA NITROGEN (BUN) 13 7 - 25 mg/dL [facility] CREATININE (blood) 0.75 0.50 - 0.96 mg/dL [facility] EGFR 113 > OR = 60 mL/min/1. 73m2 [employer] [facility] BUN/CREATININE RATIO SEE NOTE: [facility] Comment: ?? Not Reported: BUN and Creatinine are within ?? reference range. ? SODIUM 139 135 - 146 mmol/L [facility] POTASSIUM 3.9 3.5 - 5.3 mmol/L [facility] CHLORIDE 107 98 - 110 mmol/L [facility] CARBON DIOXIDE 24 20 - 32 mmol/L [facility] CALCIUM 8.9 8.6 - 10.2 mg/dL [facility] PROTEIN, TOTAL 6.4 6.1 - 8.1 g/dL [facility] ALBUMIN 4.2 3.6 - 5.1 g/dL [facility] GLOBULIN 2.2 1.9 - 3.7 g/dL (calc) [facility] ALBUMIN/GLOBULI N RATIO 1.9 1.0 - 2.5 (calc) [facility] BILIRUBIN, TOTAL 0.2 0.2 - 1.2 mg/dL [facility] ALKALINE PHOSPHATASE 50 31 - 125 U/L [employer] AST 23 10 - 30 U/L [employer] ALT 29 6 - 29 U/L [employer] Blood Blood / Unknown 04/24/2024 3 :59 PM EDT 04/24/2024 3:59 PM EDT us Lore DURAN LAB - BLOOD DRAW Edited Result - Final Performing Organization Address [facility]/ZIP Co de Phone Number [facility] [address] [address], [facility] [address] [address] * HEPATITIS C AB W/RFLX HCV RNA, QT, RT PCR (12/04/2022 10:23 AM EDT) [facility] HEPATITIS C ANTIBODY NON-REACT DEBBI NON-REACT DEBBI [facility] SIGNAL TO CUT-OFF 0.03 <1.00 [facility] Comment: HCV antibody was non-reactive. There is no laboratory evidence of HCV infection. In most cases, no further action is required. However, if recent HCV exposure is suspected, a test for HCV RNA (test code 92801) is suggested. For additional information please refer to http://education.RadMit/faq/PVI15d3 (This link is being provided for informational/ educational purposes only.) Blood Blood / Unknown 12/04/2022 1 0:23 AM EDT 12/04/2022 10:24 AM EDT Dalia KERNP-C LAB - BLOOD DRAW Edited Resu lt - Final Performing Organization Address City/[facility]/ZIP Co de Phone Number [facility] [address] [address], [facility] [address] [address] * (ABNORMAL) LIPID PANEL (12/04/2022 10:23 AM EDT) [facility] CHOLESTEROL, TOTAL 152 <200 mg/dL [facility] HDL CHOLESTEROL 42(L) > OR = 50 mg/dL [facility] TRIGLYCERIDES 130 <150 mg/dL [facility] LDL-CHOLESTEROL 87 99 mg/dL (calc) [facility] Comment: Reference range: <100 Desirable range <100 mg/dL for primary prevention; ?? <70 mg/dL for patients with CHD or diabetic patients with > or = 2 CHD risk factors. LDL-C is now calculated using the Sam-Pfeiffer calculation, which is a validated novel method providing better accuracy than the Friedewald equation in the estimation of LDL-C. Sam SS et al. ASRA. 2013;310(19): 3689-2883 (http://education.TSB/faq/VWE924) CHOL/HDLC RATIO 3.6 <5.0 (calc) [facility] NON-HDL CHOLESTEROL 110 <130 mg/dL (calc) [facility] Comment: For patients with diabetes plus 1 major ASCVD risk factor, treating to a non-HDL-C goal of <100 mg/dL (LDL-C of <70 mg/dL) is considered a therapeutic option. Blood Blood / Unknown 12/04/2022 1 0:23 AM EDT 12/04/2022 10:24 AM EDT us Dalia Ramos GEOLOGICAL SCOUT-C LAB - BLOOD DRAW Final Resul t Performing Organization Address City/[facility] Co de Phone Number [facility] [address] [address], [facility] [address] [address] * HIV-1 & HIV-2 ANTIBODIES (01/09/2018 10:30 AM EDT) [facility] HIV 1 AND 2 ANTIBODY SCREEN NEGATIVE NEGATIVE [facility] Comment: This assay is a 4th generation assay allowing for earlier detection of HIV infection by detecting the presence of the HIV-1 p24 antigen as well as the traditional antibodies to HIV type 1 (including group O) and type 2. ??Use of a 4th generation assay is the current CDC recommendation for HIV screening. Blood specimen (specimen) Blood / Unknown 01/09/2018 10:30 AM EDT 01/09/2018 10:35 AM EDT Narrative [facility] - 01/09/2018 1:08 PM EDT [employer] [address] [place] [address] PT ID [id number] ORD# [id number] Aria Brown NP LAB - BLOOD DRAW Final Result Performing Organization Address [facility] Co de Phone Number [address] [place] [address], from Last 3 Months or Most Recently Relevant to Health Maintenance Insurance [facility] Member Subscriber Plan / Payer (Ef fective 2021-Present) Name:Vaishnavi Garza Relation to Subscriber:Self Name:Vaishnavi Garza Payer ID:[id number] Group ID:Not on file Type:This Week In Address: [address] [place] [address] [facility] Member Subscriber Plan / Payer (Ef fective 2018-Present) Name:Vaishnavi Garza Relation to Subscriber:Self Name:Vaishnavi Garza Payer ID:[id number] Group ID:Not on file Type:This Week In Address: [address] [place] [address] Care Teams Apple Turner Relationship Specialty Start Date End Date Lore Jeffries PA [address] [place] [address] PCP - General Primary Care 09/10/23
--- OUTSIDE RECORDS SUMMARY | 2024-10-07 04:20 | XMS_ITS | Encounter Summary ---
Author Organization [facility] Address [address] [place] [address] Care Team Providers Care Lime Kiln And Recausticizing Operator Name Role Phone Lore Jeffries Primary Care Provider [phone] Encounter Details Date Type Department Care Team ([facility] st Contact Info) Description 05/14/[address] [phone] Lore Jeffries PA [address] [place] [address] Social History Tobacco Use Types Packs/Day Years [...] Orientation Straight 07/08/2017 10 :57 AM PST COVID-19 Exposure Response Date Recorded In the last 10 days, have lilo mccarthy been in contact with someone who was confirmed or suspected to have Coronavirus/COVID-19? No / Unsure 05/13/2024 3:13 PM EDT documented as of this encounter Plan of Treatment Upcoming Encounters Date Type Department Care Team (Late st Contact Info) Description 10/20/2024 1:40 PM EST Office Visit [address] [phone] Lore Jeffries PA [address] [place] [address] documented as of this encounter Visit Diagnoses Not on filedocumented in this encounter Additional Health Concerns Assessment Noted Time PHQ-9 Depression Total Score: 5 02/04/20 24 3:52 PM PDT documented as of this encounter Care Teams Lime Kiln And Recausticizing Operator Relationship Specialty Start Date End Date Lore Jeffries PA [address] [place] [address] PCP - General Primary Care 09/10/23 documented as of this encounter
--- NOTE | 2024-10-07 05:02 | ED_ITS ---
HPI - URI/Sore Throat General Chief Complaint: Upper Respiratory Symptoms Stated Complaint: flu like Time Seen by Provider: 10/07/24 04:39 Source: patient Mode of arrival: ambulatory Limitations: no limitations History of Present Illness ED Provider: Dr. Yola Castellon HPI Narrative: Patient comes to the emergency room complaining of 1 week of cough, body aches, intermittent diarrhea. Patient states that for the last 2 days, for the cough and the fever got worse. Patient states that the worst symptoms for her are the stuffy nose and the sore throat. Patient denies any chest pain or shortness of breath Related Data Previous Rx's ?Medication ?Instructions ?Recorded fluticasone propionate 50 1 spray intranasal DAILY #16 grams 12/18/23 mcg/actuation nasal spray,suspension (Flonase Allergy Relief) melatonin 5 mg capsule 5 mg PO .qhs #30 caps 12/18/23 ropinirole 1 mg tablet 1 mg PO BEDTIME #30 tabs 08/31/24 benzonatate 100 mg capsule 100 mg PO TID PRN cough #12 caps 10/07/24 fluticasone propionate 50 2 spray intranasal DAILY #16 grams 10/07/24 mcg/actuation nasal spray,suspension (Children's Flonase Allergy Relief) ibuprofen 600 mg tablet 600 mg PO TID PRN fever or pain 10/07/24 #20 tabs Allergies Allergy/AdvReac Type Severity Reaction Status Date / Time aripiprazole [From Abilify] Allergy Intermediate Seizure Verified 08/31/24 10:39 cat dander [cats] AdvReac Hives Verified 10/07/24 02:12 Review of Systems Review of Systems: Constitutional : No Weight loss, complaining of fever, chills, fatigue and generalized malaise ENT/Mouth : No Hearing loss, No Ear Pain, complaining of Nasal Congestion, No Sinus Pain, No Hoarseness, complaining of sore throat, No Rhinorrhea, No Swallowing Difficulty Eyes: No Eye Pain, No Swelling, No Redness, No Foreign Body, No Discharge, No Vision Changes Cardiovascular : No Chest Pain, No SOB, No Dyspnea on Exertion, No Orthopnea, No Edema, No Palpitations Respiratory : No Cough, No Sputum, No Wheezing, No Smoke Exposure, No Dyspnea Gastrointestinal : No Nausea, No Vomiting, No Diarrhea, No Constipation, No abdominal Pain, No Hematochezia, No Melena Genitourinary : no irregular bleeding, No Dysuria, No Urinary Frequency, No Hematuria, No Urinary Incontinence, No Urgency, No Flank Pain, No Urinary Flow Changes, No Hesitancy Musculoskeletal : No joint pain, No Myalgias, No Joint Swelling Skin : No Skin Lesions, No rash Neuro : No Weakness, No Numbness, No Paresthesias, No Loss of Consciousness, No Dizziness, No Headache Psych : No Anxiety/Panic, No Depression, No SI/HI/AH/VH, No Social Issues, Heme/Lymph: No Bruising, No Bleeding,No Lymphadenopathy Endocrine : No Polyuria, No Polydipsia, No Temperature Intolerance [facility] Past Medical History Surgical History H/O eye surgery Social History Social History Alcohol intake: current Patient Tobacco Use Status: Current everyday Tobacco user Advance Directives: No Advance Directives Information Provided: Yes Do you have a plan to hurt others: No Plan Physical Exam Vital Signs: Vital Signs: Last Vital Signs Temp 98.3 F 10/07/24 02:10 Pulse 93 10/07/24 02:10 Resp 20 10/07/24 02:10 BP 111/42 L 10/07/24 02:10 Pulse Ox 98 10/07/24 02:10 O2 Del Method Room Air 10/07/24 02:10 BMI result Body Mass Index 51.6 Const: Other: Appearance: Alert. Oriented X3. No acute distress. Eyes: Pupils equal, round and reactive to light. ENT: Erythematous oropharynx , no visualized abscesses Neck: Normal inspection. Neck supple. No lymph nodes noted. No crepitus CVS: Normal heart rate and rhythm. Pulses normal. Normal S1 and S2 Respiratory: No respiratory distress. Breath sounds normal. No Wheezing. No rales Abdomen: Soft and nontender. No rigidity. No distention. Skin: Skin warm and dry. Normal skin color. Normal skin turgor. Extremities: No lower extremity edema. No Lacerations. No Rash Neuro: Oriented X 3. No motor deficit. No sensory deficit. Moving all extremities. No slurred speech. CN 2 through 12 grossly intact Psych: calm, cooperative, normal affect Medical Decision Making Medical Decision Making MDM Narrative: My interpretation of labs: Patient tested positive for influenza A, strep negative Chest x-ray negative for infiltrates Patient was given p.o. viscous lidocaine and Decadron, and 1 dose of Tessalon Perles Lab Data [facility] Lab Attestation statement: I reviewed the patient's lab results. Labs: Lab Results 10/07/24 Range/Units 02:22 Influenza Type A (PCR) POSITIVE A (Negative) Influenza Type B (PCR) NEGATIVE (Negative) RSV RNA Qual (PCR) NEGATIVE (Negative) SARS-CoV-2 RNA (RT-PCR) NEGATIVE (Negative) S. pyogenes GrpA OTILIA Negative (Negative) Independent Interpretation I performed an independent interpretation of an: Plain X-Ray Radiology Impression Discussion of test interpretation with radiology: I have reviewed the radiologist's reading. Radiologist Impression: No consolidation or effusion. Normal size heart. No acute fracture. IMPRESSION: 1. No acute findings. Discharge Plan Discharge Clinical Impression: Influenza A Patient Disposition: Home, Self-Care Instructions: Influenza (ED) Additional Instructions: Please follow-up with your primary care physician tomorrow. If you have any worsening or new symptoms, please return to the emergency room or call 911 Prescriptions: New ibuprofen 600 mg tablet 600 mg PO TID PRN (Reason: fever or pain) Qty: 20 0RF fluticasone propionate [Children's Flonase Allergy Rlf] 50 mcg/actuation spray,suspension 2 spray intranasal DAILY Qty: 16 0RF Rx Instructions: administer into each nostril benzonatate 100 mg capsule 100 mg PO TID PRN (Reason: cough) Qty: 12 0RF No Action fluticasone propionate [Flonase Allergy Relief] 50 mcg/actuation spray,suspen jorje 1 spray intranasal DAILY Qty: 16 4RF Rx Instructions: administer into each nostril melatonin 5 mg capsule 5 mg PO .qhs Qty: 30 6RF ropinirole 1 mg tablet 1 mg PO BEDTIME Qty: 30 6RF Rx Instructions: administer 1-3 hours before bedtime Stand Alone Forms: Work/School Release Print Language: Anguillan
[2024-10-07] MEDS: Benzonatate 100 MG CAPSULE PO (05:34)
[2024-10-07] MEDS: dexAMETHasone sod phosphate 4 MG/ML VIAL IVPUSH (05:34)
[2024-10-07] MEDS: Lidocaine HCl Viscous 2 % 15 ML SOLUTION MUCOUS MEM (05:34)
[2024-10-07 05:37] VITALS: BP 122/61; PULSE 108; RESP 20; TEMP 37.1; O2SAT 98
--- NOTE | 2024-10-07 05:39 | PC.NURSE ---
Medicated upon discharge, reviewed charge instruction with pt. pt verbalized understanding, no sign of respiratory distress, pt ambulated with steady agait upon discharge.
[2024-10-07 05:40] VITALS: BP 122/61; PULSE 108; RESP 20; TEMP 37.1; O2SAT 98
== END 2024-10-07 05:41 | disposition home or self-care (01) ==
PROVIDERS: Emergency Provider Emergency Medicine; PCP Physician Assistant
DX: J10.1 Influenza due to other identified influenza virus with other respiratory manifestations (principal); R05.9 Cough, unspecified; R19.7 Diarrhea, unspecified; R50.9 Fever, unspecified
CPT/HCPCS: 0241U; 71045; 87651; 96374; 99284; J1100

== ENCOUNTER → 2024-10-07 02:15 | Outpatient (BNV) | payer OTHER, SELFPAY | PROVIDERS: Visit Provider Radiology Diagnostic Radiology | DX: R06.02 Shortness of breath (principal) | CPT/HCPCS: 71045 ==

== ENCOUNTER 2024-11-10 10:06 | Outpatient (AMB) | payer OTHER, SELFPAY ==
[2024-11-10 10:09] VITALS: PULSE 102; RESP 0; O2SAT 97; BMI 51.7
--- NOTE | 2024-11-10 10:09 | MHC.OFFVIS ---
Vital Signs 11/10/24 10:09 Height 5 ft 6 in Weight 320 lb 6 oz BMI 51.7 Respiration 0 L Pulse 102 H Pulse Source Pulse Oximeter Pulse Oximetry (%) 97 Intake Visit Reasons: f/u for sleep issues Intake Note: Patient presents follow up sleep. Patient states her breathing issues are getting bad when on her back. wakes up with headaches. Very tired during the day. Patient was on CPAP returning to day and would like a new sleep study to requalify for a new CPAP. Allergies aripiprazole [From Abilify] Allergy (Intermediate, Verified 11/10/24 10:13) Seizure cat dander [cats] Adverse Reaction (Verified 11/10/24 10:13) Hives HPI Comments Details: 29 y/o female patient presents for follow up. She stopped using CPAP bc her mask broke and she had multiple problems with the equipment d/t insomnia. She falls asleep at 4am, gets up at 11am and 3 bathroom, ripping the mask off of her face. She is morbidly obese her BMI is 51.7, she was on Victoza and lost 60lbs, however the insurance is not covering it. The PSG sleep study result was significant for severe degree of sleep apnea. The AHI was 60/hr and oxygen luna was 81%. 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 She is tired all the time, and slept better when she did have the CPAP, she gasps for air and chest caves when breathing at night per her partner, and her voice gets hoarse for days along with headaches due to cough. She is motivated to try again. She sleeps on her left side, sleep walks and talks, and was told she was told by her partner she has sexosmia . Grandmother has told her while on vacation and sharing a room, Vaishnavi sat up in bed and started yelling at [facility]. She coughs all the time and is a smoker, 2 cigarettes per day socially, and one pack per month. She coughs so hard she is bringing up greenish to brown colored phlegm and has been fired from work in the past for coughing spells and her vision gets blurry, will f/u with eye exam. She has PLMS / RLS, with numbness tingling in hands, and an uncomfortable feeling in her feet bilaterally which wakes her up from sleep. Her memory is okay, she has ADHD and her mood fluctuates. Diet is okay, she feels full all day until noon, she eats lunch and large portions of dinner and goes to sleep. She thinks nutrition counseling will be helpful so she can make better food choices, as she likes to walk and go to the gym. There were 275 PLMS with PLMs index 46.4/hr. 96 PLMS arousals with a PLMS arousals index of 16.2/hr. she was started on CPAP at 7 - 62% for past 30 days 8 days over 4 hrs Average usage hrs 1.57 AHI 16 PFSH Surgical History H/O eye surgery Social History Alcohol intake: current Alcohol intake frequency: holidays/special occasions only Patient Tobacco Use Status: Current everyday Tobacco user Review of Systems Const All systems reviewed & are unremarkable except as noted in HPI and below ENT Reports Normal hearing present Neuro Reports Normal hearing present Physical Exam Vital Signs: Last Vital Signs Pulse 102 H 11/10/24 10:09 Resp 0 L 11/10/24 10:09 Pulse Ox 97 11/10/24 10:09 BMI result Body Mass Index 51.7 Const General: cooperative and tired appearing Nutritional Appearance: obese Orientation/consciousness: patient oriented x3 HEENT Throat: Yes other (mallampati grade 4) Neck Neck: Yes full ROM and Yes supple Resp Effort & Inspection: normal respiratory effort and able to speak in complete sentences Neuro General: patient oriented x3 and gait normal Cranial nerves: Yes Bilaterally intact EOM present, Yes Normal facial strength present, Yes Midline tongue present, Yes Symmetric palate elevation present, Yes Normal hearing present, Yes Ability to bilaterally rotate head present and Yes Ability to bilaterally elevate shoulders present Cognition (Neuro): normal cognition Gait exam (Neuro): Normal gait present Motor exam (neuro): 5/5 motor strength present throughout and Pronator motor function not present Psych Appearance: grossly normal Mental Status: mental status grossly normal Speech and movement: Normal speech and movement present Affect: normal affect Results Reviewed Results Reviewed: Last compliance data: There were 275 PLMS with PLMs index 46.4/hr. 96 PLMS arousals with a PLMS arousals index of 16.2/hr. she was started on CPAP at 7 - 62% for past 30 days 8 days over 4 hrs Average usage hrs 1.57 AHI 16 Assessment & Plan Assessment & Plan (1) Obesity, Class III, BMI 40-49.9 (morbid obesity): Code(s): E66.01 - Morbid (severe) obesity due to excess calories Category: Medical (2) Fatigue due to sleep pattern disturbance: Code(s): R53.83 - Other fatigue; G47.9 - Sleep disorder, unspecified Category: Medical (3) Fatigue due to sleep pattern disturbance: Code(s): R53.83 - Other fatigue; G47.9 - Sleep disorder, unspecified Category: Medical Plan [facility]- primary care Pulmonology referral Chronic Coughing with green and brown phlegm PSG sleep study Wellbutrin smoking cessation and anxiety Morbid Obesity BMI is 51.7 Weight Management Eye Exam f/u with your investor relations associate Orders: Orders RT PSG in-lab sleep study Today E66.01 - Morbid (severe) obesity due to excess calories, G47.33 - Obstructive sleep apnea (adult) (pediatric) Complete Blood Count no Diff Today G47.9 - Sleep disorder, unspecified, R53.83 - Other fatigue Comprehensive Met. Panel Today G47.9 - Sleep disorder, unspecified, R53.83 - Other fatigue Hemoglobin A1c Today E66.01 - Morbid (severe) obesity due to excess calories Vitamin D 25-OH Total Today G47.9 - Sleep disorder, unspecified, R53.83 - Other fatigue TSH reflex Free T4 Today F09 - Unspecified mental disorder due to known physiological condition Vitamin B12 and Folate Today G47.9 - Sleep disorder, unspecified, R53.83 - Other fatigue Referrals Pulmonology Referral R05.3 - Chronic cough, R06.89 - Other abnormalities of breathing Medical Weight Management Referral E66.01 - Morbid (severe) obesity due to excess calories Medications: New bupropion HCl XL (Wellbutrin XL) take one tablet daily by mouth at bedtime. 150 mg PO QAM 30 tabs 3RF smoking cessation MDD 150mg F17.200 - Nicotine dependence, unspecified, uncomplicated Refilled ropinirole administer 1-3 hours before bedtime 1 mg PO BEDTIME 30 tabs 6RF Patient Instructions: Sleep Study in lab PSG Weight Management strategies discussed Chronic Cough Pulmonology referral RLS Ropinirole PRN Coding Level of Care Code Est Pt Level 4 (23241) Diagnoses Obesity, Class III, BMI 40-49.9 (morbid obesity) E66.01 Fatigue due to sleep pattern disturbance R53.83; G47.9 Time Spent (min) 40 Comment
--- OUTSIDE RECORDS SUMMARY | 2024-11-10 11:51 | XMS_ITS ---
Author Organization [facility] Address [address] [place] [address] Care Team Providers Care Edger Tailer Name Role Phone Lore Jeffries Primary Care Provider [phone] Asthma Program Status:Enrolled (Active) Start date:06/17/2023 Enrollment date:06/17/2023 Enrollment reason:Referred by provider Case Team Name Relationship Phone Ralf Molina PharmD (Responsible Staff) Continued Care and Services Coordination
--- OUTSIDE RECORDS SUMMARY | 2024-11-10 11:51 | XMS_ITS | Encounter Summary ---
Author Organization [facility] Address [address] [place] [address] Care Team Providers Care Penology Teacher Name Role Phone Lore Jeffries Primary Care Provider [phone] Reason for Referral * Dermatology (Routine) - Pending Review Specialty Diagnoses / Procedures Referred By Angie arteaga Referred To Contact Diagnoses Eczema, unspecified type Lore Jeffries PA [address] [place] [phone] Phone: tel: fax: Jaime Nye [address] [place] [address] Phone: tel: Referral ID Status Reason Start Date Expiration Date Visits Requested Visits Authorized [id number] Pending Review Evaluate and Treat 11/09/2024 11/09/2025 1 1 Comments 29F with pruritic lesions of foot bilaterally x 7 years. She reports she has been treated for eczema and athletes foot but nothing has been helpful as sxs keep recurring. Would like to establish care with a specialist. Reason for Visit * Reason Comments Referral Encounter Details Date Type Department Care Team (Latest Contact Info) Description 11/09/2024 12:00 PM EDT Telemedicine Visit [address] [phone] Lore Jeffries PA [address] [place] [id number] Eczema, unspecified type (Primary Dx) Social History Tobacco Use Types Packs/Day Years Used Date Smoking Tobacco: Some Days Cigarettes Passive Smoke Exposure: Never Smokeless Tobacco: Never Tobacco Cessation:Ready to Q uit: No; Counseling Given: Yes Comments:Occasionally smokes cigarettes. With friends on weekends Alcohol Use Standard Drinks/Week Comments Not Currently [...] as of this encounter Progress Notes * ROGER Connolly - 11/09/2024 11:48 AM EDT The following visit was conducted via phone. I educated the patient on the terms of telehealth and the patient verbally consented to this telemedicine visit. The patient was identified using their Name, . I identified myself as Lore Jeffries PA-C from [facility]. It was conducted in a private space to protect HIPPA sensitive information. Precautions were taken to provide confidentiality and security and patient was made aware of privacy considerations. The patient was notified that the services were being provided remotely from POD or exam room. The patient was notified that they can see a clinician in-person in the event of an emergency or if otherwise needed. Start time: 11: 48 am End time: 11: 55 am Vitals DEFERRED due to visit being conducted over the TELEPHONE Subjective: CC: Referral Tunneller: None, provider speaks patient's familiar language HPI: Vaishnavi Garza is a 29 year old female patient who presents for telehealth today for skin concern. She reports itchy and dry lesions to her feet bilaterally. Sxs improve and then randomly worsen. Has been struggling with sxs x 7 years. Reports that no treatments have helped. Has been treated for fungal infection and eczema in the past but nothing works. Allergies Allergen Reactions Aripiprazole Patient Active Problem List Diagnosis Anxiety and depression Posttraumatic stress disorder Attention deficit hyperactivity disorder (ADHD) Class 3 severe obesity due to excess calories without serious comorbidity with body mass index (BMI) of 45.0 to 49.9 in adult ([facility]) Nexplanon in place Binge eating disorder Current Outpatient Medications on File Prior to Visit Medication Sig Dispense Refill benzonatate (TESSALON) 200 mg capsule Take 1 Capsule by mouth 3 (three) times daily as needed for cough 30 Capsule 0 ibuprofen 800 mg tablet Take 1 Tablet by mouth 3 (three) times daily as needed for fever, headachesor pain 90 Tablet 0 rOPINIRole (REQUIP) 1 mg tablet Take 1 mg by mouth nightly at bedtime cetirizine (ZYRTEC) 10 mg tablet Take 1 Tablet by mouth once daily 90 Tablet 1 fluticasone (FLONASE) 50 mcg/actuation nasal spray Place 1 [place] in both nostrils once daily 32 mL 1 liraglutide (VICTOZA) 0.6 mg/0.1 mL (18 mg/3 mL) INJECT 0.6MG INTO THE SKIN DAILY 3 mL 1 pen needle, diabetic 32 gauge x 5/16 ndle daily. Use to inject victoza once daily 100 Each 2 clindamycin-benzoyl peroxide (BENZACLIN) 1-5 % gel Apply topically 2 (two) times daily 50 g 1 nystatin (MYCOSTATIN) 100,000 unit/gram cream Apply topically 2 (two) times daily 15 g 0 semaglutide, weight loss, 0.25 mg/0.5 mL pnij Inject 0.25 mg into the skin every 7 (seven) days Week 1 through week 4 : 0.25 mg once weekly. Week 5 through week 8: 0.5 mg once weekly. Week 9 through week 12: 1 mg once weekly. Week 13 through week 16: 1.7 mg once weekly. Week 17 and thereafter (maintenance dosage): 2.4 mg once weekly 0.5 mL 5 loratadine (CLARITIN) 10 mg tablet TAKE 1 TABLET BY MOUTH ONCE DAILY NEEDED FOR ALLERGIES 90 Tablet 0 albuterol HFA 90 mcg/actuation inhaler Inhale 1-2 Puffs into the lungs every 4 (four) hours as needed for wheezing or shortness of breath 18 g 1 No current facility-administered medications on file prior to visit. Review of Systems Remainder ROS: See HPI, systems reviewed and are otherwise negative or noncontributory. Objective: Physical Exam Neurological: Mental Status: She is oriented to person, place, and time. Psychiatric: Mood and Affect: Mood normal. Behavior: Behavior normal. Thought Content: Thought content normal. Judgment: Judgment normal. Remaining physical exam deferred due to telehealth Assessment and Plan: L30.9 Eczema, unspecified type (primary encounter diagnosis) Plan : REFERRAL TO DERMATOLOGY Plan No follow-ups on file. Assessment and plan discussed with patient. Patient agrees with plan. Questions answered. Weight management:Adult BMI follow up plan: The patient was counseled regarding nutrition and physical activity. PHQ-9 Total Score (Auto Calculated) 0 at 11/09/2024 11:24 AM 11/09/2024 11:24 AM How many times in the past year have you had 4 or more drinks in a day? NONE How many times in the past year have you used a recreational drug or used a prescription medicationfor nonmedical reasons? NONE Did patient decline PHQ screening? No Little interest or pleasure in doing things Not at all Feeling down, depressed or hopeless [include irritable if under 18] Not at all PHQ2 Score 0 Little interest or pleasure in doing things Not at all Feeling down, depressed or hopeless [include irritable if under 18] Not at all Trouble falling or staying asleep, or sleeping too much Not at all Feeling tired or having little energy Not at all Poor appetite or overeating Not at all Feeling bad about yourself - or that you are a failure or have let yourself or your family down Notat all Trouble concentrating on things like school work, reading or watching TV? Not at all Moving or speaking so slowly that other people could have noticed? Or the opposite - being so fidgety or restless that you have been moving around a lot more than usual Not at all Thoughts you would be better off or of hurting yourself in some way Not at all If you checked off any problems, how difficult have these problems made it for you to do your work,take care of things at home, or get along with other people? Not difficult at all PHQ-9 Total Score (Auto Calculated) 0 Depression Severity: None-minimal The ASCVD Risk score (Minnie DK, et al., 2019) failed to calculate for the following reasons: The 2019 ASCVD risk score is only valid for ages 40 to 79 documented in this encounter Plan of Treatment Upcoming Encounters Date Type Department Care Team (Late st Contact Info) Description 11/23/2024 2:20 PM EDT Office Visit [address] [phone] Lore Jeffries PA [address] [place] [phone] Scheduled Referrals Name Type Priority Associated Diagnoses Orde r Schedule REFERRAL TO DERMATOLOGY Referral Routine Eczema, unspecified type Ordered: 11/09/2024 documented as of this encounter Visit Diagnoses Diagnosis Eczema, unspecified type- Primary documented in this encounter Additional Health Concerns Assessment Noted Time PHQ-9 Depression Total Score: 0 11/10/19 25 11:24 AM PDT documented as of this encounter Care Teams Penology Teacher Relationship Specialty Start Date End Date Lore Jeffries PA [address] [place] [id number] PCP - General Primary Care 09/10/23 documented as of this encounter
--- OUTSIDE RECORDS SUMMARY | 2024-11-10 11:51 | XMS_ITS | Clinical Summary ---
Author Organization [facility] Address [address] [place] [address] Care Team Providers Care Entry Level Assistant Manager Name Role Phone Lore Jeffries Primary Care Provider [phone] Source Comments PLEASE NOTE, if this patient [...] (BMI) of 50.0 to 59.9 in adult ([facility]) Inject 0.25 mg into the skin every [...] (BMI) of 45.0 to 49.9 in adult ([facility]),Binge eating disorder INJECT 0.6MG INTO THE SKIN DAILY 3 mL 1 4 Active fluticasone (FLONASE) 50 mcg/actuation nasal sprayIndications :Post-nasal drip Place 1 Cameron in both nostrils once daily 32 mL [...] (BMI) of 45.0 to 49.9 in adult ([facility]) 01/30/2023 Attention deficit hyperactivity disorder (ADHD) 05/30/2022 Anxiety and depression 04/14/2017 Posttraumatic stress disorder 04/14/2017 Resolved Problems Problem Noted Date Diagnosed Date Resolved Date 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 Encounters Date Type Department Care Team Description 11/09/2024 12:00 PM EDT Telemedicine Visit [address] [phone] Lore Jeffries PA Eczema, unspecified type (Primary Dx) 10/06/2024 10:40 AM EST Telemedicine Visit [address] [phone] Child, BRUCE Mckoy Acute cough (Primary Dx); Sore throat from Last 3 Months Immunizations Name Administration [...] Description 11/23/2024 2:20 PM EDT Office Visit [facility] [address] [place] [phone] Lore Jeffries PA [address] [place] [address] Health Maintenance Due Date Last Done Comments HPV Screening 1997 Pap + HPV 1997 Medicare Annual Wellness Visit 2015 Cervical Cancer Screening 2018 Pap Smear 2018 [id number] ( season) 2024 Postponed from 05/03/2024 (Patient postponement) Relationship Safety Screening/Counseling 02/03/2025 02/04/2024, 10/04/2022, 05/30/2022 Depression Monitoring 02/09/2025 11/09/2024 , 04/24/2024, 02/04/2024, Additional history exists Imm-Influenza (#1) 2025 06/13/2023, 10/04/2022 Postponed from 05/03/2024 (Follow up visit) Diabetes Screening 04/24/2025 04/24/2024, 0 04/24/2024, 12/04/2022, Additional history exists Hypertension Screening (#1) 07/15/2025 Tobacco Cessation Counseling (#1) 11/09/2025 02/04/2024, 06/17/2023, 12/04/2022 Lipid Screening 12/04/2025 12/04/2022 Imm-DTaP/Tdap/Td (3 - Td or Tdap) 11/29/2029 11/30/2019, 11/30/2019 HIV Screening Completed 01/09/2018 Hepatitis C Screening Completed 12/04/2022 Imm-Hepatitis B Completed 06/13/2023, 02/11/2023 Imm-Pneumococcal Completed 02/04/2024 Alcohol and Drug Screen Completed 11/10/19 25, 04/24/2024, 02/04/2024, Additional history exists Cervical Ablation/Cold-Knife Conization Discontinued Cervical Cryotherapy Discontinued Colposcopy Discontinued Endometrial Biopsy Discontinued Excision/Leep Discontinued HPV Genotyping Discontinued Vaginal Pap Discontinued Vulvoscopy Discontinued Procedures Procedure Name Priority Date/Time Associated Diagnosis Comments COMPREHENSIVE METABOLIC PANEL Routine 04/24/2024 3:59 PM EDT Class 3 severe obesity due to excess calories without serious comorbidity with body mass index (BMI) of 50.0 to 59.9 in adult ([facility]) HEPATITIS C AB W/RFLX HCV RNA, QT, RT PCR Routine 12/04/2022 10:23 AM EDT Screening for viral disease LIPID PANEL Routine 12/04/2022 10:23 AM EDT Encounter for wellness examination in adult BMI 40.0-44.9, adult ([facility]) Lipid screening Abnormal finding of blood chemistry, unspecified ANTIBODY HIV-1&HIV-2 SINGLE RESULT Routine 01/09/2018 10:30 AM EDT STD (female) from Last 3 Months or Most Recently Relevant to Health Maintenance Results * (ABNORMAL) COMPREHENSIVE METABOLIC PANEL (04/24/2024 3:59 PM EDT) GLUCOSE 121(H) 65 - 99 mg/dL [facility] Comment: ?Fasting reference interval For someone without known diabetes, a glucose value between 100 and 125 mg/dL is consistent with prediabetes and should be confirmed with a follow-up test. UREA NITROGEN (BUN) 13 7 - 25 mg/dL [facility] CREATININE (blood) 0.75 0.50 - 0.96 mg/dL [facility] EGFR 113 > OR = 60 mL/min/1. 73m2 [facility] BUN/CREATININE RATIO SEE NOTE: [facility] Comment: ?? Not Reported: BUN and Creatinine are within ?? reference range. ? SODIUM 139 135 - 146 mmol/L [facility] POTASSIUM 3.9 3.5 - 5.3 mmol/L [facility] CHLORIDE 107 98 - 110 mmol/L [facility] CARBON DIOXIDE 24 20 - 32 mmol/L [facility] CALCIUM 8.9 8.6 - 10.2 mg/dL [facility] PROTEIN, TOTAL 6.4 6.1 - 8.1 g/dL [facility] ALBUMIN 4.2 3.6 - 5.1 g/dL [facility] GLOBULIN 2.2 1.9 - 3.7 g/dL (calc) [facility] ALBUMIN/GLOBULI N RATIO 1.9 1.0 - 2.5 (calc) [facility] BILIRUBIN, TOTAL 0.2 0.2 - 1.2 mg/dL [facility] ALKALINE PHOSPHATASE 50 31 - 125 U/L [facility] AST 23 10 - 30 U/L [facility] ALT 29 6 - 29 U/L [facility] Blood Blood / Unknown 04/24/2024 3 :59 PM EDT 04/24/2024 3:59 PM EDT Lore [facility]UR[facility] - BLOOD DRAW Edited Result - Final [facility] [address] [address], [facility] [address] [phone] * HEPATITIS C AB W/RFLX HCV RNA, QT, RT PCR (12/04/2022 10:23 AM EDT) [facility] HEPATITIS C ANTIBODY NON-REACT DEBBI NON-REACT DEBBI [facility] SIGNAL TO CUT-OFF 0.03 <1.00 [facility] Comment: HCV antibody was non-reactive. There is no laboratory evidence of HCV infection. In most cases, no further action is required. However, if recent HCV exposure is suspected, a test for HCV RNA (test code 89312) is suggested. For additional information please refer to http://Cloudmeter.MegaHoot/faq/LIB33r6 (This link is being provided for informational/ educational purposes only.) Blood Blood / Unknown 12/04/2022 1 0:23 AM EDT 12/04/2022 10:24 AM EDT Dalia Ramos [facility] - BLOOD DRAW Edited Resu lt - Final [facility] [address] [address], [facility] [address] [phone] * (ABNORMAL) LIPID PANEL (12/04/2022 10:23 AM EDT) [facility] CHOLESTEROL, TOTAL 152 <200 mg/dL [facility] HDL CHOLESTEROL 42(L) > OR = 50 mg/dL [facility] TRIGLYCERIDES 130 <150 mg/dL [facility] LDL-CHOLESTEROL 87 99 mg/dL (calc) [facility] Comment: Reference range: <100 Desirable range <100 mg/dL for primary prevention; ?? <70 mg/dL for patients with CHD or diabetic patients with > or = 2 CHD risk factors. LDL-C is now calculated using the Luciano calculation, which is a validated novel method providing better accuracy than the Friedewald equation in the estimation of LDL-C. Sam RO et al. SARA. 2013;310(19): 3791-0785 (http://education.Novelos [employer]rapeutics/faq/WNJ935) CHOL/HDLC RATIO 3.6 <5.0 (calc) [facility] NON-HDL CHOLESTEROL 110 <130 mg/dL (calc) [facility] Comment: For patients with diabetes plus 1 major ASCVD risk factor, treating to a non-HDL-C goal of <100 mg/dL (LDL-C of <70 mg/dL) is considered a therapeutic option. Blood Blood / Unknown 12/04/2022 1 0:23 AM EDT 12/04/2022 10:24 AM EDT Dalia Ramos [facility] - BLOOD DRAW Final Resul t Performing Organization Address City/[facility]/ZIP Co de Phone Number [facility] [address] [address], [facility] [address] [address] * HIV-1 & HIV-2 ANTIBODIES (01/09/2018 10:30 AM EDT) [facility] HIV 1 AND 2 ANTIBODY SCREEN NEGATIVE NEGATIVE [facility] Comment: This assay is a 4th generation [...] AM EDT 01/09/2018 10:35 AM EDT Narrative [facility] - 01/09/2018 1:08 PM EDT [facility] [address] [place] [address] PT ID [id number] ORD# [id number] Aria Brown NP LAB - BLOOD DRAW Final Result Performing Organization Address City/[facility]/ZIP Co de Phone Number [address] [address], from Last 3 Months or Most Recently Relevant to Health Maintenance Insurance [facility] Member Subscriber Plan / Payer (Ef fective 2021-Present) Name:Vaishnavi Garza Relation to Subscriber:Self Name:Vaishnavi Garza Payer ID:[id number] Group ID:Not on file Type:Desigual Address: [address] [place] [address] [facility] Member Subscriber Plan / Payer (Ef fective 2018-Present) Name:Vaishnavi Garza Relation to Subscriber:Self Name:Vaishnavi Garza Payer ID:[id number] Group ID:Not on file Type:Desigual Address: [address] [place] [address] Care Teams Entry Level Assistant Manager Relationship Specialty Start Date End Date Lore Jeffries PA [address] [place] [address] PCP - General Primary Care 09/10/23
--- OUTSIDE RECORDS SUMMARY | 2024-11-10 11:51 | XMS_ITS | Encounter Summary ---
Author Organization [facility] Address [address] [place] [address] Care Team Providers Care Import/Export Agent Name Role Phone Lore Jeffries Primary Care Provider [phone] Encounter Details Date Type Department Care Team ([facility] st Contact Info) Description 05/14/[address] [phone] Lore Jeffries PA [address] [place] [phone] Social History Tobacco Use Types Packs/Day Years [...] In the last 10 days, have lilo u been in contact with someone who was confirmed or suspected to have Coronavirus/COVID-19? No / Unsure 05/13/2024 3:13 PM EDT documented as of this encounter Plan of Treatment Upcoming Encounters Date Type Department Care Team ([facility] st Contact Info) Description 11/23/2024 2:20 PM EDT Office Visit [address] [phone] Lore Jeffries PA [address] [place] [address] documented as of this encounter Visit Diagnoses Not on filedocumented in this encounter Additional Health Concerns Assessment Noted Time PHQ-9 Depression Total Score: 5 02/04/20 3:52 PM PDT documented as of this encounter Care Teams Import/Export Agent Relationship Specialty Start Date End Date Lore Jeffries PA [address] [place] [id number] PCP - General Primary Care 09/10/23 documented as of this encounter
== END 2024-11-10 11:08 | disposition home or self-care (01) ==
LOC: HO.HSMS 10:07
PROVIDERS: Visit Provider Physician Assistant Medical
DX: E66.01 Morbid (severe) obesity due to excess calories (principal); R53.83 Other fatigue; G47.9 Sleep disorder, unspecified
CPT/HCPCS: 99214

== ENCOUNTER → 2024-11-10 10:06 | Outpatient (BNVA) | payer OTHER, SELFPAY | PROVIDERS: Visit Provider Physician Assistant Medical | DX: G47.9 Sleep disorder, unspecified (principal); R53.83 Other fatigue; E66.01 Morbid (severe) obesity due to excess calories; Z68.43 Body mass index [BMI] 50.0-59.9, adult | CPT/HCPCS: 99212 ==

== ENCOUNTER → 2024-12-11 20:30 | Outpatient (REF) | payer OTHER, SELFPAY | LOC: HO.SL 20:30 | PROVIDERS: Visit Provider Physician Assistant Medical | DX: G47.33 Obstructive sleep apnea (adult) (pediatric) (principal); E66.01 Morbid (severe) obesity due to excess calories | CPT/HCPCS: 95810 ==

== ENCOUNTER → 2024-12-11 22:41 | Outpatient (BNV) | payer OTHER, SELFPAY | PROVIDERS: Visit Provider Internal Medicine | DX: G47.33 Obstructive sleep apnea (adult) (pediatric) (principal) | CPT/HCPCS: 95810 ==

== ENCOUNTER 2024-12-20 00:11 | Emergency (ER) | payer OTHER, SELFPAY ==
--- NOTE | ~2024-12-20 | XR_ITS ---
CLINICAL HISTORY: cough 1 view chest x-ray Comparison: 10/07/2024 Findings: Lungs are clear without acute infiltrates. No pneumothorax. Heart size normal. No acute bony abnormalities. Impression: No acute processes This document has been electronically signed by: Jose Ac MD on 12/20/2024 00:49:02
[2024-12-20 00:17] VITALS: BP 125/62; PULSE 94; RESP 20; TEMP 36.4; O2SAT 99; BMI 50.0
[2024-12-20 01:09] LABS: MANUAL DIFF FLAG NO
[2024-12-20 01:10] LABS: Basophils Percent Auto 0.4 % (0-2); Eosinophils Absolute Auto 0.2 X10*3/uL (0.0-0.4); Hematocrit 37.7 % (37.0-47.0); Hemoglobin 12.7 g/dl (12.0-16.0); Imm Gran Abs Auto 0.04 X10*3/uL (0.00-0.03); Imm Gran Pct Auto 0.4 % (0.0-0.4); Lymphocytes Percent Auto 29.8 % (20-40); Mean Corpuscular HGB Conc 33.7 g/dl (31.0-35.0); Mean Corpuscular Hemoglobin 27.7 pg (27.0-33.0); Mean Corpuscular Volume 82.1 fL (80.0-98.0); Monocytes Absolute Auto 0.7 X10*3/uL (0.1-1.2); Monocytes Percent Auto 6.7 % (2-11); Neutrophils Percent Auto 60.7 % (45-73); Platelet Count 230 X10*3/uL (160-400); Red Blood Count 4.59 X10*6/uL (4.20-5.50)
--- NOTE | 2024-12-20 01:14 | ED.GENADULT ---
HPI - General Adult General Chief complaint: General Medical Stated complaint: flu like Time Seen by Provider: 12/20/24 00:26 Source: patient, RN notes reviewed and old records reviewed Mode of arrival: ambulatory Limitations: no limitations History of Present Illness ED Provider: Tahir JOSHI narrative: 29-year-old female with past medical history significant for morbid obesity, anxiety and depression, chronic coughing, sleep apnea, presents for evaluation of upper respiratory symptoms. She reports for the last few months she has had on and off congestion, cough, body aches. She denies any fevers or chills. She reports that her symptoms return every week and last for a few days. She reports vomiting twice today. Denies any abdominal pain She reports that she was to other individuals living in the house who did not get sick as often as she does Denies any sick contacts Related Data Previous Rx's ?Medication ?Instructions ?Recorded fluticasone propionate 50 1 spray intranasal DAILY #16 grams 12/18/23 mcg/actuation nasal spray,suspension (Flonase Allergy Relief) melatonin 5 mg capsule 5 mg PO .qhs #30 caps 12/18/23 benzonatate 100 mg capsule 100 mg PO TID PRN cough #12 caps 10/07/24 fluticasone propionate 50 2 spray intranasal DAILY #16 grams 10/07/24 mcg/actuation nasal spray,suspension (Children's Flonase Allergy Relief) ibuprofen 600 mg tablet 600 mg PO TID PRN fever or pain 10/07/24 #20 tabs bupropion HCl 150 mg 24 hr tablet, 150 mg PO QAM smoking cessation 11/10/24 extended release (Wellbutrin XL) #30 tabs ropinirole 1 mg tablet 1 mg PO BEDTIME #30 tabs 11/10/24 amoxicillin 875 mg-potassium 1 tab PO Q12H #14 tabs 12/20/24 clavulanate 125 mg tablet Allergies Allergy/AdvReac Type Severity Reaction Status Date / Time aripiprazole [From Abilify] Allergy Intermediate Seizure Verified 12/20/24 00:20 cat dander [cats] AdvReac Hives Verified 12/20/24 00:20 Review of Systems Constitutional: Constitutional: Reports body ache(s), Reports chills, Denies fever(s), Reports headache(s) and Reports weakness Eyes: Eyes: Denies blurry vision ENT: Denies vertigo, Denies dizziness, Reports headache(s) and Denies sore throat Cardiovascular: Cardiovascular: Denies chest pain and Reports dyspnea Respiratory: Respiratory: Reports change in phlegm color, Reports chest congestion, Reports cough, Reports pain on inspiration, Reports pain with cough and Reports dyspnea Gastrointestinal: Gastrointestinal: Denies abdominal pain, Reports nausea and Reports vomiting Musculoskeletal: Musculoskeletal: Denies back pain Integumentary/Breasts: Skin/Breast: Denies rash Neurologic: Denies vertigo, Denies dizziness, Reports headache(s) and Reports weakness PMFSH Past Medical History Surgical History H/O eye surgery Social History Social History Alcohol intake: current Alcohol intake frequency: holidays/special occasions only Patient Tobacco Use Status: Current everyday Tobacco user Advance Directives: No Advance Directives Information Provided: Yes Do you have a plan to hurt others: No Plan Physical Exam ED Vital Signs: Vital Signs - 24 hr 12/20/24 00:17 Temperature 97.5 F Pulse Rate 94 Respiratory Rate 20 Blood Pressure 125/62 Pulse Oximetry 99 Oxygen Delivery Method Room Air BMI result Body Mass Index 50.0 Const General: healthy appearing, comfortable, no acute distress, alert and awake Nutritional Appearance: well nourished Orientation/consciousness: patient oriented x3 HENMT Head: Yes normocephalic and Yes atraumatic General nose exam: Nasal discharge present, no epistaxis and no nasal polyps Face and sinus: No crepitus, Yes sinus tenderness and No dry mucous membranes Throat: Yes posterior oropharynx normal Eyes Eyelids: Yes eyelids normal Conjunctivae: conjunctivae normal Sclerae: sclerae normal Corneas: corneas normal Pupils: Equal, round and reactive pupils present EOM: EOMs intact bilaterally Neck Neck: Yes full ROM Resp Effort & Inspection: normal respiratory effort, able to speak in complete sentences, no audible wheezes and not labored Auscultation: clear to auscultation bilaterally Cardio Rate: regular rate Rhythm: regular rhythm GI Inspection: No distended Palpation (GI): Soft to palpation, not firm, nontender, no guarding and not rigid Skin General skin exam: elasticity normal Neuro General: patient oriented x3 Cranial nerves: Yes Equal, round and reactive pupils present and Yes Bilaterally intact EOM present Cognition (Neuro): normal cognition Extrem Other: Moving all extremities well without any obvious deformities Medical Decision Making Medical Decision Making MDM Narrative: 29-year-old healthy female presents for evaluation of flu-like symptoms.. Vital signs are stable, lungs are clear. Plan for basic labs, viral swabs and chest x-ray. Differential Diagnosis Differential Diagnoses: The differential diagnosis associated with the presentation includes Upper respiratory infection Acute sinusitis Influenza COVID-19 pneumonia Lab Data 12/20/24 01:04 12/20/24 01:04 Labs: Lab Results 12/20/24 12/20/24 Range/Units 01:00 01:04 WBC 10.0 (4.8-10.8) X10*3/uL RBC 4.59 (4.20-5.50) X10*6/uL Hgb 12.7 (12.0-16.0) g/dl Hct 37.7 (37.0-47.0) % MCV 82.1 (80.0-98.0) fL MCH 27.7 (27.0-33.0) pg MCHC 33.7 (31.0-35.0) g/dl RDW 14.0 (11.0-16.0) % Plt Count 230 (160-400) X10*3/uL MPV 10.0 (9.4-12.3) fL Immature Gran % (Auto) 0.4 (0.0-0.4) % Neut % (Auto) 60.7 (45-73) % Lymph % (Auto) 29.8 (20-40) % Antelope % (Auto) 6.7 (2-11) % Eos % (Auto) 2.0 (0-4) % Baso % (Auto) 0.4 (0-2) % Lymph # (Auto) 3.0 (1.2-4.9) X10*3/uL Antelope # (Auto) 0.7 (0.1-1.2) X10*3/uL Eos # (Auto) 0.2 (0.0-0.4) X10*3/uL Baso # (Auto) 0.0 (0.0-0.2) X10*3/uL Abs Immat Gran (auto) 0.04 H (0.00-0.03) X10*3/uL Absolute Neuts (auto) 6.0 (2.0-8.3) x10*3/uL Absolute Nucleated RBC 0.000 (0.0-0.012) X10*3/uL Nucleated RBC % (auto) 0.0 (0.0-0.2) /100WBC Sodium 142 (135-145) mmol/L Potassium 3.9 (3.3-5.1) mmol/L Chloride 111 H (96-108) mmol/L Carbon Dioxide 21 L (22-29) mmol/L Anion Gap 14 (12-20) BUN 10 (9-16) mg/dL Creatinine 0.73 (0.5-1.4) mg/dL Estim Creat Clear Calc 167.8 Estimated GFR > 60 Random Glucose 119 H (60-115) mg/dL Calcium 8.9 (8.4-10.2) mg/dL Total Bilirubin 0.3 (0.0-1.0) mg/dL AST 19 (5-31) U/L ALT 34 H (0-31) U/L Alkaline Phosphatase 48 (39-117) U/L Total Protein 6.4 L (6.5-8.0) g/dL Albumin 3.7 (3.5-5.0) g/dL Beta HCG, Quant < 2 mIU/mL Influenza Type A (PCR) NEGATIVE (Negative) Influenza Type B (PCR) NEGATIVE (Negative) RSV RNA Qual (PCR) NEGATIVE (Negative) SARS-CoV-2 RNA (RT-PCR) NEGATIVE (Negative) S. pyogenes GrpA OTILIA Negative (Negative) Discharge Plan Discharge Clinical Impression: Sinusitis Patient Disposition: Home, Self-Care Instructions: Sinusitis (ED) Additional Instructions: Take Augmentin twice daily for 7 days to treat acute sinusitis. You may use ibuprofen/Tylenol for pain. You may also use an [id number] decongestant Follow-up with your primary doctor, return for new or worsening symptoms Prescriptions: New amoxicillin-pot clavulanate 875-125 mg tablet 1 tab PO Q12H Qty: 14 0RF No Action ibuprofen 600 mg tablet 600 mg PO TID PRN (Reason: fever or pain) Qty: 20 0RF fluticasone propionate [Children's Flonase Allergy Rlf] 50 mcg/actuation spray,suspension 2 spray intranasal DAILY Qty: 16 0RF Rx Instructions: administer into each nostril benzonatate 100 mg capsule 100 mg PO TID PRN (Reason: cough) Qty: 12 0RF fluticasone propionate [Flonase Allergy Relief] 50 mcg/actuation spray,suspension 1 spray intranasal DAILY Qty: 16 4RF Rx Instructions: administer into each nostril melatonin 5 mg capsule 5 mg PO .qhs Qty: 30 6RF ropinirole 1 mg tablet 1 mg PO BEDTIME Qty: 30 6RF Rx Instructions: administer 1-3 hours before bedtime bupropion HCl [Wellbutrin XL] 150 mg tablet extended release 24 hr 150 mg PO QAM MDD 150mg Qty: 30 3RF Rx Instructions: take one tablet daily by mouth at bedtime. Print Language: Rwandan
[2024-12-20 01:18] LABS: IDNOW Serial# 58CA691E; Strep A Nucleic Acid Negative (Negative)
[2024-12-20 01:36] LABS: Alanine Aminotransferase 34 U/L (0-31); Albumin Level 3.7 g/dL (3.5-5.0); Alkaline Phosphatase 48 U/L (39-117); Anion Gap 14 (12-20); Aspartate Amino Transferase 19 U/L (5-31); Bilirubin Total 0.3 mg/dL (0.0-1.0); Blood Urea Nitrogen 10 mg/dL (9-16); Calcium 8.9 mg/dL (8.4-10.2); Carbon Dioxide 21 mmol/L (22-29); Chloride 111 mmol/L (96-108); Creatinine Clr Calc Pharmacy 167.8; Estimated Glomerular Filt Rate > 60; Glucose Random 119 mg/dL (60-115); HCG Quantitative < 2 mIU/mL; Potassium 3.9 mmol/L (3.3-5.1); Sodium 142 mmol/L (135-145); Total Protein 6.4 g/dL (6.5-8.0)
[2024-12-20 01:47] LABS: Influenza A PCR NEGATIVE (Negative); Influenza B PCR NEGATIVE (Negative); Resp Syncy Virus RNA Qual PCR NEGATIVE (Negative); SARS COV2 PCR INHOUSE NEGATIVE (Negative)
[2024-12-20] MEDS: Amoxicillin/Potassium Clav 875 MG TABLET PO (02:03)
[2024-12-20] MEDS: Lidocaine HCl Viscous 2 % 15 ML SOLUTION MUCOUS MEM (02:03)
[2024-12-20 02:07] VITALS: BP 125/62; PULSE 94; RESP 20; TEMP 36.4; O2SAT 99
== END 2024-12-20 02:11 | disposition home or self-care (01) ==
PROVIDERS: Internal Medicine; Physician Assistant; Emergency Provider Emergency Medicine
DX: J32.9 Chronic sinusitis, unspecified (principal); R05.9 Cough, unspecified; R09.89 Other specified symptoms and signs involving the circulatory and respiratory systems; R11.10 Vomiting, unspecified; Z03.818 Encounter for observation for suspected exposure to other biological agents ruled out
CPT/HCPCS: 0241U; 36415; 71045; 80053; 84702; 85025; 87651; 99283; 99284

== ENCOUNTER → 2024-12-20 00:24 | Outpatient (BNV) | payer OTHER, SELFPAY | PROVIDERS: Visit Provider Radiology Diagnostic Radiology | DX: R05.9 Cough, unspecified (principal) | CPT/HCPCS: 71045 ==

== ENCOUNTER 2025-04-13 14:02 | Outpatient (AMB) | payer OTHER, SELFPAY ==
--- NOTE | 2025-04-13 14:26 | MHC.OFFVIS ---
Vital Signs 04/13/25 14:27 Height 5 ft 6 in Weight 314 lb 6 oz BMI 50.7 BP 118/78 Blood Pressure Location Rt brachial Position Sitting Intake Visit Reasons: follow up Intake Note: Patient presents follow up Sleep. No Labs/No-showed Pulm 12/01. PSG in chart(AHI-33, TATYANA-74%. Trialed on CPAP 4-9cm. Start CPAP 9cm with M [id number] mask)Compliance in chart( days, >=4hrs-54%, Average usage-3hr 26min, Pressure 9cm, Med leaks-2.2, AHI-2.3). Allergies aripiprazole (From Abilify) Allergy (Intermediate, Verified 04/13/25 14:34) Seizure cat dander (cats) Adverse Reaction (Verified 04/13/25 14:34) Hives HPI Comments Details: 29 y/o female patient presents for follow up. PSG c/w severe NIA AHI c/w was 60/hr and oxygen tatyana was 81%. NIA Compliance 01/2025- 04/2025 47/69 days, >=4hrs-54% and Average usage-3hr 26min Pressure 9cmH20, Med leaks-2.2cmH20, AHI-2.3/hr She washes her mask, rinses hoses, changes filters and fills reservoir with water daily. She has started training herself to not pull the cpap mask off her face due to parasomnia. She gets up every 2 hours and ensures the cpap is on her face and she is not pulling it off. She has headaches on nights when she does not have a good night sleep. Hot showers help. She is trying to quit smoking from red ones to light ones, with thicker filters and reduced nicotine. She notices her mood is irritable and gets aggressive when not smoking we discussed increasing Wellbutrin to 300mg po at next visit. She will start using the patch for smoking cessation and gum. She has stopped drinking coffee 3x a day, now drinking it once a week. She is losing weight and is now at 314lbs from 330lbs, would like to get onto the Zepbound, she would like to go back to weight medication for meal planning and portion control counseling. She feels more refreshed in the mornings with the use of cpap and is trying to continue to increase her nightly use. She continues to pull off her cpap mask, screams or yells in her dream, due night terrors. She has PLMS / RLS, with numbness tingling in hands bilaterally, weakness can not open jars. She has uncomfortable feeling in her feet bilaterally when driving with numbness, tingling mainly when driving, and muscle cramps at night 400mg magnesium. B12/ Vit D. Her memory is stable. Mood fluctuates, due to smoking cessation and ADHD. [facility] Surgical History H/O eye surgery Social History Alcohol intake: current Alcohol intake frequency: holidays/special occasions only Patient Tobacco Use Status: Current everyday Tobacco user Substance Use Type: Marijuana Review of Systems ENT Reports Normal hearing present Neuro Reports Normal hearing present Physical Exam Vital Signs: Last Vital Signs BP 118/78 04/13/25 14:27 BMI result Body Mass Index 50.7 Const General: cooperative and tired appearing Nutritional Appearance: obese Orientation/consciousness: patient oriented x3 HEENT Throat: Yes other (mallampati grade 4) Neck Neck: Yes full ROM and Yes supple Resp Effort & Inspection: normal respiratory effort and able to speak in complete sentences Neuro General: patient oriented x3 and gait normal Cranial nerves: Yes Bilaterally intact EOM present, Yes Normal facial strength present, Yes Midline tongue present, Yes Symmetric palate elevation present, Yes Normal hearing present, Yes Ability to bilaterally rotate head present and Yes Ability to bilaterally elevate shoulders present Cognition (Neuro): normal cognition Gait exam (Neuro): Normal gait present Motor exam (neuro): 5/5 motor strength present throughout and Pronator motor function not present Psych Appearance: grossly normal Mental Status: mental status grossly normal Speech and movement: Normal speech and movement present Affect: normal affect Assessment & Plan Assessment & Plan (1) Obstructive sleep apnea on CPAP: Code(s): G47.33 - Obstructive sleep apnea (adult) (pediatric) Category: Medical (2) Obesity, Class III, BMI 40-49.9 (morbid obesity): Code(s): E66.01 - Morbid (severe) obesity due to excess calories Category: Medical (3) Fatigue due to sleep pattern disturbance: Code(s): R53.83 - Other fatigue; G47.9 - Sleep disorder, unspecified Category: Medical (4) Weakness of both hands: Code(s): R29.898 - Other symptoms and signs involving the musculoskeletal system Category: Medical (5) Needs smoking cessation education: Code(s): F17.200 - Nicotine dependence, unspecified, uncomplicated Category: Medical Plan NIA f/u on compliance, continue using cpap and >4 hours daily. Reviewed compliance, she has night terrrors is pulling off her mask. We discussed a sedative for sleep, patient declines. Anxiety Wellbutrin continue 150mg po daily at breakfast smoking cessation start 0.5mg chantix Weight management for Morbid Obesity BMI is 50 PT/OT hand weakness bilateral Eye Exam f/u with your police communications dispatcher Orders: Orders OT Evaluation and Treatment Today R29.898 - Other symptoms and signs involving the musculoskeletal system Medications: New varenicline tartrate (Chantix) take 1 tablet by mouth daily on days 1-3; then 1 tablet twice daily (morning and evening) on days 4-7 0.5 mg PO DIRECTED 90 tabs 0RF smoking cessation 3 months MDD 0.5mg F17.200 - Nicotine dependence, unspecified, uncomplicated Patient Instructions: Sleep Hygiene provided: set a scheduled bedtime and wake time to help regulate the circadian rhythm and balance the release of pituitary hormones. Sleep in a dark room, temperatures below 68 degrees, and no devices n bed. Limit caffeinated products 6 hours prior to bed, and limit fluids 2-4 hours prior to bed. Gentle night yoga, diffusing essential oils, and playing soft music can be relaxing. Coding Level of Care Code Est Pt Level 4 (70801) Complex EM visit Add On G2211 Diagnoses Obstructive sleep apnea on CPAP G47.33 Obesity, Class III, BMI 40-49.9 (morbid obesity) E66.01 Fatigue due to sleep pattern disturbance R53.83; G47.9 Weakness of both hands R29.898 Needs smoking cessation education F17.200
[2025-04-13 14:27] VITALS: BP 118/78; BMI 50.7
--- OUTSIDE RECORDS SUMMARY | 2025-04-13 15:04 | XMS_ITS ---
Author Organization [facility] Address [address] [place] [address] Care Team Providers Care Grain Merchandiser Name Role Phone Lore Jeffries Primary Care Provider [phone] Ast[facility] Program Status:Enrolled (Active) Start date:06/17/2023 Enrollment date:06/17/2023 Enrollment reason:Referred by provider Case Team Name Relationship Phone Ralf Molina PharmD(Responsible Staff) [phone] Continued Care and Services Coordination
== END 2025-04-13 15:18 | disposition home or self-care (01) ==
LOC: HO.HSMS 14:03
PROVIDERS: Visit Provider Physician Assistant Medical
DX: G47.33 Obstructive sleep apnea (adult) (pediatric) (principal); E66.01 Morbid (severe) obesity due to excess calories; R53.83 Other fatigue; G47.9 Sleep disorder, unspecified; R29.898 Other symptoms and signs involving the musculoskeletal system; F17.200 Nicotine dependence, unspecified, uncomplicated
CPT/HCPCS: 99214; G2211

== ENCOUNTER → 2025-04-13 14:02 | Outpatient (BNVA) | payer OTHER, SELFPAY | PROVIDERS: Visit Provider Physician Assistant Medical | DX: G47.33 Obstructive sleep apnea (adult) (pediatric) (principal); E66.01 Morbid (severe) obesity due to excess calories; R53.83 Other fatigue; G47.9 Sleep disorder, unspecified; R29.898 Other symptoms and signs involving the musculoskeletal system; F17.210 Nicotine dependence, cigarettes, uncomplicated; Z68.43 Body mass index [BMI] 50.0-59.9, adult | CPT/HCPCS: 99212 ==

== ENCOUNTER 2025-06-03 10:36 | Outpatient (AMB) | payer OTHER, SELFPAY ==
--- NOTE | 2025-06-03 11:08 | MHC.OFFVIS ---
Vital Signs 06/03/25 11:11 Height 5 ft 6 in Weight 296 lb 8 oz BMI 47.9 BP 110/74 Blood Pressure Location Rt brachial Position Sitting Pulse 90 Pulse Source Pulse Oximeter Pulse Oximetry (%) 99 Oxygen Delivery Method Room Air Intake Visit Reasons: follow up, pt request Intake Note: Patient presents follow up per patient. Compliance in chart(88/90days, >=4hrs-82%, Average Usage-5hr 51min, Pressure-9cm, Med Leaks-9.9, AHI-2.0). Patient states her CPAP company needs documentation stating she is in compliance with her machine to get supplies. Allergies aripiprazole (From Abilify) Allergy (Intermediate, Verified 06/03/25 11:15) Seizure cat dander (cats) Adverse Reaction (Verified 06/03/25 11:15) Hives HPI Comments Details: 30 y/o female patient presents for follow up of obstructive sleep apnea. Sep 2023 PSG c/w severe NIA AHI was 60/hr and oxygen luna was 81% with moderate snoring. Titration study completed and Split night study reviewed with pt. NIA Compliance Report 03/04/2025- 06/01/2025 reviewed with pt today. 88/90 days, >=4hrs is 83% and Average use is 5 hours and 51min Press set to 9cmH20, Med leaks [id number], AHI-2.0/hr She washes her mask, rinses hoses, changes filters and fills reservoir with water daily. She feels more refreshed in the mornings with the use of cpap and is trying to continue to increase her nightly use. She feels more energetic and notices she can accomplish more tasks and likes being productive through the day. She also notices her headaches have improved since using cpap consistently.She has now trained herself to avoid pulling the cpap mask off her face due to Parasomnias and binge eating. She gets up every 2 hours and ensures the cpap is on her face. Her mask is broken and she has taped it up so she is compliant. She is trying to quit smoking, now down to 2 - 3 cigarettes per day and with thicker filters to reduce nicotine. She notices her mood is irritable and gets aggressive when not smoking we discussed increasing Wellbutrin to 300mg po at next visit. She will start using the patch for smoking cessation and the gum. Weight management She is losing weight by redirecting her focus during urges for binge eating, she weighed 314lb at her last appt and today she is 296lbs. She would like to get a rx for Zepbound, however insurance did not approve it. She is aware of her urges to binge eat, and will focus on various tasks such as going for a walk, drinking water, or eating cucumbers, celery, and jerky. She is recognizing the foods which have nutritional value vs empty carbs, calories and sugar filled snacks. She has an appt with weight management on 2024. She denies purging behavior and depression. She has PLMS / RLS, she has an uncomfortable sensation in her legs and this keeps her up at night. She has cramps with curling of her toes, this makes her jump out of bed and straighten her legs during the night. While driving she also has an uncomfortable sensation in her feet with pins, needles and tingling. She has paresthesias in hands with difficulty opening jars, and lifting heavy objects.Her memory is stable, though has trouble remembering many daily tasks, due to multi tasking with her 5 year old daughter. Her mood continues to be irritable as she tapers off of cigarette smoking. Her diet continues to improve. She continues to take magnesium 400mg, B12 1000mcg along with Vitamin D, daily. [facility] Surgical History H/O eye surgery Social History Alcohol intake: current Alcohol intake frequency: holidays/special occasions only Patient Tobacco Use Status: Current everyday Tobacco user Substance Use Type: Marijuana Review of Systems ENT Reports Normal hearing present Neuro Reports Normal hearing present Physical Exam Vital Signs: Last Vital Signs Pulse 90 06/03/25 11:11 BP 110/74 06/03/25 11:11 Pulse Ox 99 06/03/25 11:11 Oxygen Delivery Method Room Air 06/03/25 11:11 BMI result Body Mass Index 47.9 Const Other: pleasant pt. she has lost 18lbs since last appt. General: cooperative, comfortable and no acute distress Nutritional Appearance: obese Orientation/consciousness: patient oriented x3 HEENT Face and sinus: Yes face symmetric Throat: Yes other (mallampati grade 4) Eyes Pupils: Equal, round and reactive pupils present Neck Neck: Yes full ROM and Yes supple Resp Effort & Inspection: normal respiratory effort and able to speak in complete sentences Neuro Other: mild tremor l. upper ext General: patient oriented x3, gait normal and moves all extremities Cranial nerves: Yes Equal, round and reactive pupils present, Yes Normal accommodation reflex present, Yes Bilaterally intact EOM present, Yes Normal facial strength present, Yes Midline tongue present, Yes Symmetric palate elevation present, Yes Normal hearing present, Yes Ability to bilaterally rotate head present and Yes Ability to bilaterally elevate shoulders present Cognition (Neuro): normal cognition Gait exam (Neuro): Normal gait present Motor exam (neuro): 5/5 motor strength present throughout, Normal motor muscle tone present throughout and Tremors during motor activity present (l. upper ext ) Psych Appearance: grossly normal Mental Status: mental status grossly normal Speech and movement: Normal speech and movement present Affect: normal affect Thought process: Normal thought process present Results Reviewed Results Reviewed: NIA Compliance Report 03/04/2025- 06/01/2025 reviewed with pt today. 88/90 days, >=4hrs is 83% and Average use is 5 hours and 51min Press set to 9cmH20, Med leaks [id number], AHI-2.0/hr She washes her mask, rinses hoses, changes filters and fills reservoir with water daily. Assessment & Plan Assessment & Plan (1) Obstructive sleep apnea on CPAP: Code(s): G47.33 - Obstructive sleep apnea (adult) (pediatric) Category: Medical (2) NIA (obstructive sleep apnea): Comment: Severe degree of sleep apnea. The AHI was 60/hr and oxygen luna was 81%. Code(s): G47.33 - Obstructive sleep apnea (adult) (pediatric) Category: Medical (3) Needs smoking cessation education: Code(s): F17.200 - Nicotine dependence, unspecified, uncomplicated Category: Medical (4) Periodic limb movement disorder: Code(s): G47.61 - Periodic limb movement disorder Category: Medical (5) Obesity, Class III, BMI 40-49.9 (morbid obesity): Code(s): E66.01 - Morbid (severe) obesity due to excess calories Category: Medical (6) Fatigue due to sleep pattern disturbance: Code(s): R53.83 - Other fatigue; G47.9 - Sleep disorder, unspecified Category: Medical (7) Weakness of both hands: Code(s): R29.898 - Other symptoms and signs involving the musculoskeletal system Category: Medical Plan NIA on cpap and compliant, continue using cpap and >4 hours daily. Reviewed compliance with pt. she is doing very well. We discussed a sedative for sleep, patient declines. Continue Melatonin 5mg po daily at bedtime. Anxiety Wellbutrin continue 150mg po daily at breakfast smoking cessation start 0.5mg chantix Mild tremor is noted will monitor for CTS/ and send for NCS / EMG if pt is bothered by this at next appt. Physical Therapy, hand paresthesias, and weakness bilaterally, will f/u at next deborah. Weight management Jul 09, 2025, for Morbid Obesity BMI is 47.7, she is motivated to lose weight since I have been seeing her she has lost 20lbs. She would like to try a GLP 1 for weight reduction and could benefit from nutritional guidance. Medications: Refilled bupropion HCl XL (Wellbutrin XL) take one tablet daily by mouth at bedtime. 150 mg PO QAM 30 tabs 3RF smoking cessation MDD 150mg F17.200 - Nicotine dependence, unspecified, uncomplicated melatonin 5 mg PO .qhs 30 caps 6RF Patient Instructions: Sleep Hygiene provided: set a scheduled bedtime and wake time to help regulate the circadian rhythm and balance the release of pituitary hormones. Sleep in a dark room, temperatures below 68 degrees, and no devices n bed. Limit caffeinated products 6 hours prior to bed, and limit fluids 2-4 hours prior to bed. Gentle night yoga, diffusing essential oils, and playing soft music can be relaxing. Continue to use Cpap daily, and >4 hours. Start Wellbutrin 150mg po daily at breakfast as this medication can be slightly stimulating and will help with craving of nicotine. Monitor Tremor L. upper extremity will discuss at next appt. Monitor bilateral hand paresthesias, will provide wrist brace if painful. RX sent for supplies and new mask order. F/U with weight management for morbid obesity as pts BMI is 47 she is motivated to lose weight, however needs nutritional guidance on well balanced meals and proportion sizes. Coding Level of Care Code Est Pt Level 4 (71311) Diagnoses Obstructive sleep apnea on CPAP G47.33 NIA (obstructive sleep apnea) G47.33 Needs smoking cessation education F17.200 Periodic limb movement disorder G47.61 Obesity, Class III, BMI 40-49.9 (morbid obesity) E66.01 Fatigue due to sleep pattern disturbance R53.83; G47.9 Weakness of both hands R29.898
[2025-06-03 11:11] VITALS: BP 110/74; PULSE 90; O2SAT 99; BMI 47.9
--- OUTSIDE RECORDS SUMMARY | 2025-06-03 12:26 | XMS_ITS | Clinical Summary ---
Author Organization [facility] Address [address] [place] [address] Care Team Providers Care Sales Department Supervisor Name Role Phone Lore Jeffries Primary Care Provider [phone] Source Comments PLEASE NOTE, if this patient [...] (BMI) of 50.0 to 59.9 in adult Inject 0.25 mg into the skin every [...] index (BMI) of 45.0 to 49.9 in adult,Binge eating disorder INJECT 0.6MG INTO THE SKIN DAILY 3 mL 1 4 Active fluticasone (FLONASE) 50 mcg/actuation nasal sprayIndications :Post-nasal drip Place 1 Wann in both nostrils once daily 32 mL [...] (BMI) of 45.0 to 49.9 in adult 01/30/2023 Attention deficit hyperactivity disorder (ADHD) 05/30/2022 Anxiety and depression 04/14/2017 Posttraumatic stress disorder 04/14/2017 Resolved Problems Problem Noted Date Diagnosed Date Resolved Date 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 Encounters Date Type Department Care Team Description 2025 3:40 PM EDT Office Visit [address] [phone] Bhumi Crouch NP from Last 3 Months Immunizations Immunization Administration Dates Next Due DTAP (Infanrix) 11/30/2019 Flu, Preservative Free 06/13/2023,10/04/2022 HPV 9 (Gardasil) 06/13/2023,02/11/2023, 3 Hep B,adult,adjuvanted (HEPLISAV) 06/13/2023,08/2023 MMR (MMR II/Priorix) 02/11/2020 PNEUMOCOCCAL CONJUGATE PCV 2 0 (Prevnar 20) 02/04/2024,06/17/2023(Deferred: Out of Stock) TDAP 11/30/2019 Family [...] Sign Reading Time Taken Comments Blood Pressure 90/60 2025 3:34 PM EDT Pulse 76 2025 3:34 PM EDT Temperature 37 C (98.6 F) 2025 3:34 PM EDT Respiratory Rate 16 2025 3:34 PM EDT Oxygen Saturation 95% 2025 3:34 PM EDT Inhaled Oxygen Concentration - - Weight 141.5 kg (312 lb) 07/15/2024 4:39 PM EST Height 167.6 cm (5' 6 ) 2025 3:34 PM EDT Body Mass Index 50.36 07/15/2024 4:39 PM EST Plan of Treatment Upcoming Encounters Date Type Department Care Team (Late st Contact Info) Description 07/14/2025 3:00 PM EST Office Visit [facility] [address] [place] [address] Julio Whaley PA-C [address] [place] [address] Health Maintenance Due Date Last Done Comments HPV Screening 1997 Pap + HPV 1997 Medicare Annual Wellness Visit 2015 Cervical Cancer Screening 2018 Pap Smear 2018 Relationship Safety Screening/Counseling 02/03/2025 02/04/2024, 10/04/2022, 05/30/2022 Depression Monitoring 02/09/2025 11/09/2024 , 04/24/2024, 02/04/2024, Additional history exists Diabetes Screening 04/24/2025 04/24/2024, 0 04/24/2024, 12/04/2022, Additional history exists [id number] ( season) 2025 Imm-Influenza (#1) 2025 06/13/2023, 10/04/2022 Anxiety Screening 11/09/2025 11/09/2024 Tobacco Cessation Counseling (#1) 11/09/2025 02/04/2024, 06/17/2023, 12/04/2022 Lipid Screening 12/04/2025 12/04/2022 Hypertension Screening (#1) 2026 Imm-DTaP/Tdap/Td (3 - Td or Tdap) 11/29/2029 020, 11/30/2019 HIV Screening Completed 01/09/2018 Hepatitis C Screening Completed 12/04/2022 Imm-HPV Completed 06/13/2023, 01/31, 10/04/2022 Imm-Hepatitis B Completed 06/13/2023, 02/11/2023 Imm-Pneumococcal Completed 02/04/2024 Alcohol and Drug Screen Completed 11/10/19 25, 04/24/2024, 02/04/2024, Additional history exists Cervical Ablation/Cold-Knife Conization Discontinued Cervical Cryotherapy Discontinued Colposcopy Discontinued Endometrial Biopsy Discontinued Excision/Leep Discontinued HPV Genotyping Discontinued Vaginal Pap Discontinued Vulvoscopy Discontinued Procedures Procedure Name Priority Date/Time Associated Diagnosis Comments REFERRAL SCANNED DOCUMENT 05/06/2025 3:00 AM EDT COMPREHENSIVE METABOLIC PANEL Routine 04/24/2024 3:59 PM EDT Class 3 severe obesity due to excess calories without serious comorbidity with body mass index (BMI) of 50.0 to 59.9 in adult ([facility]) HEPATITIS C AB W/RFLX HCV RNA, QT, RT PCR Routine 12/04/2022 10:23 AM EDT Screening for viral disease LIPID PANEL Routine 12/04/2022 10:23 AM EDT Encounter for wellness examination in adult BMI 40.0-44.9, adult ([facility]) Lipid screening Abnormal finding of blood chemistry, unspecified ANTIBODY HIV-1&HIV-2 SINGLE RESULT Routine 01/09/2018 10:30 AM EDT STD (female) from Last 3 Months or Most Recently Relevant to Health Maintenance Results * REFERRAL SCANNED DOCUMENT (05/06/2025 3:00 AM EDT) 05/06/2025 3:00 AM EDT us Chma Provider Default SCAN REFERRAL Final Resu lt * (ABNORMAL) COMPREHENSIVE METABOLIC PANEL (04/24/2024 3:59 PM EDT) GLUCOSE 121(H) 65 - 99 mg/dL [facility] Comment: Fasting reference interval For someone without known diabetes, a glucose value between 100 and 125 mg/dL is consistent with prediabetes and should be confirmed with a follow-up test. UREA NITROGEN (BUN) 13 7 - 25 mg/dL [facility] CREATININE (blood) 0.75 0.50 - 0.96 mg/dL [facility] EGFR 113 > OR = 60 mL/min/1. 73m2 [facility] BUN/CREATININE RATIO SEE NOTE: [facility] Comment: Not Reported: BUN and Creatinine are within reference range. SODIUM 139 135 - 146 mmol/L [facility] POTASSIUM 3.9 3.5 - 5.3 mmol/L [facility] CHLORIDE 107 98 - 110 mmol/L [facility] CARBON DIOXIDE 24 20 - 32 mmol/L [facility] CALCIUM 8.9 8.6 - 10.2 mg/dL [facility] PROTEIN, TOTAL 6.4 6.1 - 8.1 g/dL [facility] ALBUMIN 4.2 3.6 - 5.1 g/dL [facility] GLOBULIN 2.2 1.9 - 3.7 g/dL (calc) [facility] ALBUMIN/GLOBULI N RATIO 1.9 1.0 - 2.5 (calc) [facility] BILIRUBIN, TOTAL 0.2 0.2 - 1.2 mg/dL [facility] ALKALINE PHOSPHATASE 50 31 - 125 U/L [facility] AST 23 10 - 30 U/L [facility] ALT 29 6 - 29 U/L [facility] Blood Blood / Unknown 04/24/2024 3 :59 PM EDT 04/24/2024 3:59 PM EDT us Lore [facility] - BLOOD DRAW Edited Result [place] [address], [facility] [address] [address] * HEPATITIS C AB W/RFLX HCV RNA, QT, RT PCR (12/04/2022 10:23 AM EDT) [facility] HEPATITIS C ANTIBODY NON-REACT DEBBI NON-REACT DEBBI [facility] SIGNAL TO CUT-OFF 0.03 <1.00 [facility] Comment: HCV antibody was non-reactive. There is no laboratory evidence of HCV infection. In most cases, no further action is required. However, if recent HCV exposure is suspected, a test for HCV RNA (test code 24557) is suggested. For additional information please refer to http://education.Allostatix/faq/GHL31u1 (This link is being provided for informational/ educational purposes only.) Blood Blood / Unknown 12/04/2022 1 0:23 AM EDT 12/04/2022 10:24 AM EDT Dalia Richard [employer] LAB - BLOOD DRAW Edited [place]u [place] [address], [facility] [address] [address] * (ABNORMAL) LIPID PANEL (12/04/2022 10:23 AM EDT) [facility] CHOLESTEROL, TOTAL 152 <200 mg/dL [facility] HDL CHOLESTEROL 42(L) > OR = 50 mg/dL [facility] TRIGLYCERIDES 130 <150 mg/dL [facility] LDL-CHOLESTEROL 87 99 mg/dL (calc) [facility] Comment: Reference range: <100 Desirable range <100 mg/dL for primary prevention; <70 mg/dL for patients with CHD or diabetic patients with > or = 2 CHD risk factors. LDL-C is now calculated using the Luciano calculation, which is a validated novel method providing better accuracy than the Friedewald equation in the estimation of LDL-C. Sam RO et al. SARA. 2013;310(19): 9338-8157 (http://education.VidSys.[employer]/faq/WUU571) CHOL/HDLC RATIO 3.6 <5.0 (calc) [place] [facility] NON-HDL CHOLESTEROL 110 <130 mg/dL (calc) [facility] [facility] Comment: For patients with diabetes plus 1 major ASCVD risk factor, treating to a non-HDL-C goal of <100 mg/dL (LDL-C of <70 mg/dL) is considered a therapeutic option. Blood Blood / Unknown 12/04/2022 1 0:23 AM EDT 12/04/2022 10:24 AM EDT Dalia Ramos [employer] IN[employer]ER-C LAB - BLOOD DRAW Final Resul t Performing Organization Address City/[facility]/ZIP Co de Phone Number [facility] [address] [address], [facility] [address] [address] * HIV-1 & HIV-2 ANTIBODIES (01/09/2018 10:30 AM EDT) [facility] HIV 1 AND 2 ANTIBODY SCREEN NEGATIVE NEGATIVE [facility] Comment: This assay is a 4th generation assay allowing for earlier detection of HIV infection by detecting the presence of the HIV-1 p24 antigen as well as the traditional antibodies to HIV type 1 (including group O) and type 2. Use of a 4th generation assay is the current CDC recommendation for HIV screening. Blood specimen (specimen) Blood / Unknown 01/09/2018 10:30 AM EDT 01/09/2018 10:35 AM EDT Narrative [facility] [employer] [facility] - 01/09/2018 1:08 PM EDT [address] [place] [id number] PT ID [id number] ORD# [id number] Aria Brown NP LAB - BLOOD DRAW Final Result Performing Organization Address City/[facility]/ZIP Co de Phone Number [address] [address], from Last 3 Months or Most Recently Relevant to Health Maintenance Insurance [facility] Care Teams Sales Department Supervisor Relationship Specialty Start Date End Date Lore Jeffries PA [address] [place] [phone] PCP - General Primary Care 09/10/23
--- OUTSIDE RECORDS SUMMARY | 2025-06-03 12:26 | XMS_ITS ---
Author Organization [facility] Address [address] [place] [address] Care Team Providers Care Gang Supervisor Name Role Phone Lore Jeffries Primary Care Provider [phone] Asthma Program Status:Enrolled (Active) Start date:06/17/2023 Enrollment date:06/17/2023 Enrollment reason:Referred by provider Case Team Name Relationship Phone Ralf Molina PharmD(Responsible Staff) [phone] Continued Care and Services Coordination
== END 2025-06-03 12:04 | disposition home or self-care (01) ==
LOC: HO.HSMS 10:37
PROVIDERS: Visit Provider Physician Assistant Medical
DX: G47.33 Obstructive sleep apnea (adult) (pediatric) (principal); F17.200 Nicotine dependence, unspecified, uncomplicated; G47.61 Periodic limb movement disorder; E66.01 Morbid (severe) obesity due to excess calories; R53.83 Other fatigue; G47.9 Sleep disorder, unspecified; R29.898 Other symptoms and signs involving the musculoskeletal system
CPT/HCPCS: 99214

== ENCOUNTER → 2025-06-03 10:36 | Outpatient (BNVA) | payer OTHER, SELFPAY | PROVIDERS: Visit Provider Physician Assistant Medical | DX: G47.33 Obstructive sleep apnea (adult) (pediatric) (principal); G47.9 Sleep disorder, unspecified; Z99.89 Dependence on other enabling machines and devices; F17.200 Nicotine dependence, unspecified, uncomplicated; G47.61 Periodic limb movement disorder; R53.83 Other fatigue; R29.898 Other symptoms and signs involving the musculoskeletal system; E66.01 Morbid (severe) obesity due to excess calories; Z68.42 Body mass index [BMI] 45.0-49.9, adult | CPT/HCPCS: 99212 ==